=== PATIENT | female | born 1955 | race Caucasian/White ===

== ENCOUNTER 2021-07-21 11:11 | Outpatient (REF) | payer OTHER, SELFPAY ==
[2021-07-21 11:44] LABS: MANUAL DIFF FLAG NO
[2021-07-21 12:34] LABS: Basophils Percent Auto 0.5 % (0-2); Eosinophils Absolute Auto 0.1 X10*3/uL (0.0-0.4); Eosinophils Percent Auto 1.4 % (0-4); Hematocrit 39.9 % (37.0-47.0); Hemoglobin 12.4 g/dl (12.0-16.0); Imm Gran Abs Auto 0.03 X10*3/uL (0.00-0.03); Imm Gran Pct Auto 0.3 % (0.0-0.4); Lymphocytes Absolute Auto 1.9 X10*3/uL (1.2-4.9); Lymphocytes Percent Auto 21.9 % (20-40); Mean Corpuscular HGB Conc 31.1 g/dl (31.0-35.0); Mean Corpuscular Hemoglobin 27.3 pg (27.0-33.0); Mean Corpuscular Volume 87.9 fL (80.0-98.0); Mean Platelet Volume 12.1 fL (9.4-12.3); Monocytes Absolute Auto 0.6 X10*3/uL (0.1-1.2); Monocytes Percent Auto 7.4 % (2-11); Neutrophils Absolute Auto 5.9 x10*3/uL (2.0-8.3); Neutrophils Percent Auto 68.5 % (45-73); Platelet Count 210 X10*3/uL (160-400); Red Blood Count 4.54 X10*6/uL (4.20-5.50); Red Cell Distribution Width 13.7 % (11.0-16.0); White Blood Count 8.6 X10*3/uL (4.8-10.8)
[2021-07-21 13:24] LABS: Alanine Aminotransferase 15 U/L (0-31); Albumin Level 4.3 g/dL (3.5-5.0); Alkaline Phosphatase 69 U/L (39-117); Amylase 41 U/L (28-100); Aspartate Amino Transferase 14 U/L (5-31); Bilirubin Direct 0.2 mg/dL (0.0-0.5); Bilirubin Total 0.4 mg/dL (0.0-1.0); Lipase 29 U/L (8-78)
[2021-07-23 17:47] LABS: Immunoglobulin A 191 mg/dL (70-320)
[2021-07-24 12:16] LABS: Gliadin Deamidated IgA Ab 27.6 U/mL; Gliadin Deamidated IgG Ab 25.3 U/mL; Transglutaminase Ab IgG <1.0 U/mL; Transglutaminase IgA <1.0 U/mL
[2021-07-27 14:12] LABS: Endomysial IgA Antibody Negative (Negative)
== END 2021-07-21 11:12 | disposition home or self-care (01) ==
LOC: HO.LAB 11:11
PROVIDERS: PCP Internal Medicine; Visit Provider Internal Medicine
DX: R10.9 Unspecified abdominal pain (principal); K58.0 Irritable bowel syndrome with diarrhea
CPT/HCPCS: 36415; 80076; 82150; 82784; 83690; 85025; 86231; 86258; 86364

== ENCOUNTER 2022-02-04 09:46 | Outpatient (REF) | payer OTHER, SELFPAY ==
[2022-02-04 10:40] LABS: Hematocrit 39.7 % (37.0-47.0); Hemoglobin 12.5 g/dl (12.0-16.0); Mean Corpuscular HGB Conc 31.5 g/dl (31.0-35.0); Mean Corpuscular Hemoglobin 27.2 pg (27.0-33.0); Mean Corpuscular Volume 86.5 fL (80.0-98.0); Mean Platelet Volume 11.6 fL (9.4-12.3); Platelet Count 246 X10*3/uL (160-400); Red Blood Count 4.59 X10*6/uL (4.20-5.50); Red Cell Distribution Width 14.4 % (11.0-16.0); White Blood Count 8.7 X10*3/uL (4.8-10.8)
[2022-02-04 11:17] LABS: Alanine Aminotransferase 11 U/L (0-31); Albumin Level 4.4 g/dL (3.5-5.0); Alkaline Phosphatase 62 U/L (39-117); Anion Gap 19 (12-20); Aspartate Amino Transferase 14 U/L (5-31); Bilirubin Total 0.5 mg/dL (0.0-1.0); Blood Urea Nitrogen 9 mg/dL (9-16); Calcium 9.5 mg/dL (8.4-10.2); Carbon Dioxide 25 mmol/L (22-29); Chloride 103 mmol/L (96-108); Cholesterol 167 mg/dL; Estimated Glomerular Filt Rate > 60; Glucose Fasting 92 mg/dL (60-99); HDL Cholesterol 52 mg/dL; LDL Cholesterol Calculated 97 mg/dl; Potassium 4.4 mmol/L (3.3-5.1); Sodium 143 mmol/L (135-145); Total Protein 7.3 g/dL (6.5-8.0); Triglycerides 94 mg/dL
[2022-02-04 11:24] LABS: Erythrocyte Sedimentation Rate 20 MM/HR (0-20)
[2022-02-04 11:26] LABS: TSH reflex Free T4 1.03 uIU/mL (0.32-4.0)
[2022-02-07 12:17] LABS: CRP High Sensitivity >10.0 mg/L
[2022-02-07 16:33] LABS: Cyclic Citrullinated Peptide <16 UNITS
[2022-02-09 14:56] LABS: Anti Nuclear Antibody Screen NEGATIVE (NEGATIVE)
== END 2022-02-04 09:47 | disposition home or self-care (01) ==
LOC: HO.LAB 09:46
PROVIDERS: PCP Physician Assistant; Visit Provider Physician Assistant
DX: M79.10 Myalgia, unspecified site (principal); I10 Essential (primary) hypertension
CPT/HCPCS: 36415; 80053; 80061; 84443; 85027; 85652; 86038; 86039; 86141; 86200

== ENCOUNTER 2022-02-11 09:57 | Outpatient (REF) | payer OTHER, SELFPAY ==
--- NOTE | ~2022-02-11 | XR_ITS ---
EXAMINATION: XR HAND, RIGHT CLINICAL INFORMATION: Hand pain COMPARISON: None TECHNIQUE: PA, lateral, and oblique views of the right hand. FINDINGS: No acute fracture or dislocation. Degenerative changes of the hand and wrist involving the first metacarpophalangeal joint with loss of joint space and subchondral sclerosis with mild degenerative changes of the distal interphalangeal joints. Soft tissues are unremarkable. XR/XR hand RT 2V IMPRESSION: Degenerative changes of the hand worst involving the first metacarpophalangeal joint where there is moderate degenerative change.
--- NOTE | ~2022-02-11 | XR_ITS ---
EXAMINATION: XR humerus LT CLINICAL INFORMATION: Reason for Exam M79.641 - Pain in right hand/ BILATERAL ARM PAIN COMPARISON: None. TECHNIQUE: AP and lateral views of the humerus XR/XR humerus LT FINDINGS/IMPRESSION: * No acute fracture or dislocation. * Moderate degenerative changes of the acromioclavicular joint with loss of joint space. Glenohumeral joint space is maintained. * Minimal calcification adjacent to the greater tuberosity may reflect a degree of calcific tendinitis. Dedicated radiographs of the shoulder may be useful for further evaluation.
--- NOTE | ~2022-02-11 | XR_ITS ---
EXAMINATION: XR femur RT 1V, XR femur LT 2V CLINICAL INFORMATION: Reason for Exam M79.641 - Pain in right hand/ BILATERAL THIGH PAIN COMPARISON: None. TECHNIQUE: AP and lateral views of the bilateral femurs XR/XR femur RT 1V FINDINGS/IMPRESSION: * No acute fracture or dislocation. 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 * Mild degenerative changes of the bilateral hips with marginal osteophytes.
--- NOTE | ~2022-02-11 | XR_ITS ---
EXAMINATION: XR femur RT 1V, XR femur LT 2V CLINICAL INFORMATION: Reason for Exam M79.641 - Pain in right hand/ BILATERAL THIGH PAIN COMPARISON: None. TECHNIQUE: AP and lateral views of the bilateral femurs XR/XR femur LT 2V FINDINGS/IMPRESSION: * No acute fracture or dislocation. 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 * Mild degenerative changes of the bilateral hips with marginal osteophytes.
--- NOTE | ~2022-02-11 | XR_ITS ---
EXAMINATION: XR humerus RT CLINICAL INFORMATION: Reason for Exam M79.641 - Pain in right hand/ BILATERAL ARM PAIN COMPARISON: None. TECHNIQUE: AP and lateral views of the humerus XR/XR humerus RT FINDINGS/IMPRESSION: * No acute fracture or dislocation. * Moderate degenerative changes of the acromioclavicular joint with loss of joint space. Glenohumeral joint space is maintained. * Mineralization is noted in the subacromial joint space which may reflect calcific tendinitis.
--- NOTE | ~2022-02-11 | XR_ITS ---
EXAMINATION: XR HAND, LEFT CLINICAL INFORMATION: Hand pain COMPARISON: None TECHNIQUE: PA, lateral, and oblique views of the left hand. FINDINGS: No acute fracture or dislocation. Degenerative changes of the hand, worst involving the first carpometacarpal joint where there is advanced loss of joint space and subchondral sclerosis with mild degenerative changes of the distal interphalangeal joints. Soft tissues are unremarkable. XR/XR hand LT 2V IMPRESSION: Degenerative changes of the hand worst involving the first carpometacarpal joint where there is severe loss of joint space.
== END 2022-02-11 09:58 | disposition home or self-care (01) ==
LOC: HO.XRAY 09:57
PROVIDERS: PCP Physician Assistant; Visit Provider Physician Assistant
DX: M79.601 Pain in right arm (principal); M79.602 Pain in left arm; M79.641 Pain in right hand; M79.642 Pain in left hand; M79.651 Pain in right thigh; M79.652 Pain in left thigh
CPT/HCPCS: 73060; 73120; 73551; 73552

== ENCOUNTER 2022-04-13 11:59 | Outpatient (REF) | payer OTHER, SELFPAY ==
--- NOTE | ~2022-04-13 | MM_ITS ---
EXAMINATION: MM SCREENING DIGITAL BREAST TOMOSYNTHESIS, BILATERAL CLINICAL INFORMATION: Screening. Asymptomatic. The lifetime risk of breast cancer based on the Tyrer-Cuzick Model is 3%. COMPARISON: Outside mammography: 12/25/2020, 12/25/2019, 11/15/2018 ([facility]). TECHNIQUE: Digital breast tomosynthesis is performed in both the craniocaudal and mediolateral oblique views along with computer-aided detection (CAD). Synthesized 2D images are generated from the tomosynthesis. FINDINGS: There are scattered areas of fibroglandular density (ACR BI-RADS breast composition Category b). Parenchymal pattern is similar to prior outside studies. Breast tissue composition borders on predominantly fatty. There is no interval mass or architectural abnormality or developing density. No abnormal calcifications. Again, there are grouped dermal calcifications mid 3:00 right breast. The axilla and skin contours are unremarkable. No significant changes. MM/MM tomosynthesis screening BI IMPRESSION: No mammographic evidence of malignancy. ASSESSMENT: BI-RADS 2: Benign RECOMMENDATION: Routine annual mammography screening. This patient's information was entered into a reminder system with a target due date for their next mammogram.
== END 2022-04-13 12:00 | disposition home or self-care (01) ==
LOC: HO.MAMMO 11:59
PROVIDERS: Visit Provider Physician Assistant
DX: Z12.31 Encounter for screening mammogram for malignant neoplasm of breast (principal)
CPT/HCPCS: 77063; 77067

== ENCOUNTER 2022-06-21 09:37 | Outpatient (REF) | payer OTHER, SELFPAY ==
[2022-06-21 10:20] LABS: Hematocrit 38.5 % (37.0-47.0); Mean Corpuscular HGB Conc 31.2 g/dl (31.0-35.0); Mean Corpuscular Volume 86.5 fL (80.0-98.0); Mean Platelet Volume 11.9 fL (9.4-12.3); Platelet Count 203 X10*3/uL (160-400); Red Blood Count 4.45 X10*6/uL (4.20-5.50); Red Cell Distribution Width 14.1 % (11.0-16.0); White Blood Count 6.5 X10*3/uL (4.8-10.8)
[2022-06-21 11:09] LABS: Alanine Aminotransferase 11 U/L (0-31); Albumin Level 4.3 g/dL (3.5-5.0); Alkaline Phosphatase 55 U/L (39-117); Anion Gap 10 (12-20); Aspartate Amino Transferase 13 U/L (5-31); Bilirubin Total 0.4 mg/dL (0.0-1.0); Blood Urea Nitrogen 11 mg/dL (9-16); Calcium 9.6 mg/dL (8.4-10.2); Carbon Dioxide 27 mmol/L (22-29); Chloride 107 mmol/L (96-108); Cholesterol 149 mg/dL; Estimated Glomerular Filt Rate > 60; Glucose Fasting 96 mg/dL (60-99); HDL Cholesterol 49 mg/dL; LDL Cholesterol Calculated 81 mg/dl; Potassium 4.3 mmol/L (3.3-5.1); Sodium 140 mmol/L (135-145); Total Protein 6.9 g/dL (6.5-8.0); Triglycerides 96 mg/dL
[2022-06-21 11:16] LABS: TSH reflex Free T4 0.97 uIU/mL (0.32-4.0)
[2022-06-21 13:00] LABS: Creatinine Urine 48.15 mg/dL; Microalbumin Urine < 5.0 mg/L
== END 2022-06-21 09:38 | disposition home or self-care (01) ==
LOC: HO.LAB 09:37
PROVIDERS: PCP Physician Assistant; Visit Provider Physician Assistant
DX: I10 Essential (primary) hypertension (principal)
CPT/HCPCS: 36415; 80053; 80061; 82043; 84443; 85027

== ENCOUNTER 2023-01-31 13:50 | Outpatient (AMB) | payer OTHER, SELFPAY ==
[2023-01-31 13:54] VITALS: BP 138/86; PULSE 63; O2SAT 95; BMI 34.8
--- NOTE | 2023-01-31 13:54 | A.OFFPC_ITS ---
Vital Signs 01/31/23 13:54 Height 4 ft 11 in Weight 172 lb 2 oz BMI 34.8 BP 138/86 Blood Pressure Location Lt brachial Position Sitting Pulse 63 Pulse Source Pulse Oximeter Pulse Oximetry (%) 95 Oxygen Delivery Method Room Air Intake Visit Reasons: Ear and throat pain Allergies No Known Allergies [No Known Allergies*] Allergy (Verified 01/31/23 14:09) Medication List - Last Reconciled 01/31/23 by Joshua Brown PA-C acetaminophen ER (Tylenol 8 Hour) 650 mg PO Q12H 30 days albuterol sulfate 90 mcg/actuation 1 puff inhalation Q8H 30 days amlodipine 5 mg PO DAILY budesonide-formoterol 160-4.5 mcg/actuation (Symbicort) 2 puffs PO BID 30 days dicyclomine 10 - 20 mg PO Q6H PRN gabapentin mg PO lisinopril 20 mg PO DAILY omeprazole 40 mg PO QAM ondansetron HCl 8 mg (2 x 4 mg) PO BID 10 days Tobacco use date assessed: 08/23/22 HPI Ear and throat pain HPI Details Patient is 67-year-old female here today for a problem visit. She has been experiencing ear and throat pain over the last 4 days. She has noted some throat pain when swallowing. She denies any sick contacts at home. She denies having any fever, cough, shortness of breath. [facility] Medical History COPD (chronic obstructive pulmonary disease) GERD (gastroesophageal reflux disease) HTN, goal to be determined Obesity Osteoarthritis Osteopenia Vitamin D deficiency Surgical History H/O: hysterectomy Hx of section Hx of cholecystectomy S/P endoscopy Family History Sister Afib Brain bleed Social History Housing: Apartment Alcohol intake: current Alcohol intake frequency: holidays/special occasions only Patient Tobacco Use Status: Former Tobacco user Quit Date: 2013 Tobacco use type: Cigarette e-Cigarette/Vaping Use: Never Used Current occupational status: retired Cognitive needs: No Hearing needs: No Vision needs: Yes Questionnaire PHQ-9 Over the last 2 weeks, how often have you been bothered by any of the following problems? 1. Little interest or pleasure in doing things: not at all 2. Feeling down, depressed, or hopeless: not at all 3. Trouble falling or staying asleep, or sleeping too much: not at all 4. Feeling tired or having little energy: not at all 5. Poor appetite or overeating: not at all 6. Feeling bad about yourself - or that you are a failure or have let yourself or your family down: not at all 7. Trouble concentrating on things, such as reading the newspaper or watching television: not at all 8. Moving or speaking so slowly that other people could have noticed. Or the opposite - being so fidgety or restless that you have been moving around a lot more than usual: not at all 9. Thoughts that you would be better off or of hurting yourself in some way: not at all Total score: 0 Depression Screening Interpretation: Negative 77493 - PHQ-9 Billing: Yes Source: Developed by Drs. Bernabe Nix, Crista Avendaño, Edis Costello and colleagues, with an educational cliff from [employer]. Thrive Questionnaire Date Thrive assessed: 08/23/22 I am a: Patient What is your living situation today?: I have a steady place to live Within the past 12 months, did the food you bought not last and you didn't have the money to get more?: Never true Within the past 12 months, did you worry whether your food would run out before you got money to buy more?: Never true Currently or been in a relationship where the following occur: no concerns reported AUDIT C Alcohol Use Questionnaire (AUDIT-C) 1. How often do you have a drink containing alcohol?: Monthly or less 2. How many drinks containing alcohol do you have on a typical day when you are drinking?: 1 or 2 3. How often do you have six or more drinks on one occasion?: Never Total Score: 1 MARIA TERESA-7 AMB Questionnaire MARIA TERESA-7 Date MARIA TERESA - 7 assessed: 08/23/22 Feeling nervous, anxious, or on edge: 0 = Not at all Not being able to stop or control worryin = Not at all Worrying too much about different things: 0 = Not at all Trouble relaxin = Not at all Being so restless that it is hard to sit still: 0 = Not at all Becoming easily annoyed or irritable: 0 = Not at all Feeling afraid as if something awful might happen: 0 = Not at all Total MARIA TERESA-7 score (0-4 normal; 5-9 mild; 10-14 moderate; 15-21 severe): 0 Source: Developed by Drs. Bernabe Nix, Crista Avendaño, Edis Costello and colleagues, with an educational cliff from [employer]. MARIA TERESA-7 Assessment Billing MARIA TERESA-7 Assessment Tool: MARIA TERESA-7 Assessment 86217 Review of Systems Const Denies headache(s) Eyes Denies loss of vision ENT Denies vertigo, Denies dizziness, Denies headache(s) and Denies sore throat Card Denies chest pain, Denies leg edema and Denies lightheadedness Resp Denies cough, Denies hemoptysis and Denies wheezing GI Denies abdominal pain, Denies melena, Denies constipation, Denies diarrhea and Denies vomiting Denies urinary frequency, Denies dysuria and Denies urinary urgency Musc Denies arthralgias, Denies joint swelling, Denies numbness and Denies tingling Neuro Denies Abnormal speech present, Denies behavioral changes, Denies vertigo, Denies dizziness, Denies headache(s), Denies loss of vision, Denies memory loss, Denies numbness and Denies tingling Psych Denies anxiety, Denies behavioral changes, Denies depression, Denies memory loss and Denies panic attacks Bryon/Lymph Denies easy bleeding and Denies easy bruising Aller/Immun Denies wheezing Physical exam (Primary Care) Vital Signs: Last Vital Signs Pulse 63 01/31/23 13:54 BP 138/86 01/31/23 13:54 Pulse Ox 95 01/31/23 13:54 Oxygen Delivery Method Room Air 01/31/23 13:54 BMI result Body Mass Index 34.8 Tobacco/Smoking Status: Tobacco use Status Tobacco use date assessed 08/23/22 01/31/23 13:58 Patient Tobacco Use Status Former Tobacco user 01/31/23 13:58 Tobacco use type Cigarette 01/31/23 13:58 e-Cigarette/Vaping Use Never Used 01/31/23 13:58 PHQ-9: PHQ-9 Score PHQ-9: Total score 0 01/31/23 14:10 Depression Screening Interpretation: Negative Thrive Assessment: Date of Thrive Assessment Date Thrive assessed 08/23/22 01/31/23 13:58 Currently or been in a relationship where the following occur: no concerns reported Const General: healthy appearing, no acute distress, alert and awake Nutritional Appearance: well nourished Orientation/consciousness: oriented to person, oriented to place and oriented to time HENMT Other: Ears: TM's normal bilaterally General nose exam: Normal nasal mucous membranes and turbinates present Eyes Conjunctivae: conjunctivae normal Sclerae: sclerae normal Pupils: Equal, round and reactive pupils present Neck Neck: Yes no lymphadenopathy and Yes no JVD Thyroid: Thyroid normal Carotids: no bruits Resp Effort & Inspection: normal respiratory effort and not tachypneic Auscultation: no crackles, no rales, no rhonchi and no wheezes Cardio Rate: regular rate Rhythm: regular rhythm Heart sounds: no murmurs and normal S1 and S2 GI Palpation (GI): Soft to palpation, nontender, no hepatomegaly and no splenomegaly Auscultation: normal bowel sounds Skin General skin exam: no rashes or lesions noted and dry skin Neuro General: oriented to person, oriented to place and oriented to time Cranial nerves: Yes Equal, round and reactive pupils present Speech: No Abnormal speech present Gait exam (Neuro): Normal gait present Motor exam (neuro): no tremor noted Extrem Right upper extremity: full ROM Left upper extremity: full ROM Right lower extremity: full ROM; no edema Left lower extremity: full ROM; no edema Psych Mental Status: mental status grossly normal Speech and movement: Normal speech and movement present Affect: normal affect Attitude: cooperative Thought process: Normal thought process present Assessment and Plan Assessment & Plan (1) Acute pharyngitis: Code(s): J02.9 - Acute pharyngitis, unspecified Qualifiers: Pharyngitis/tonsillitis etiology: herpes simplex virus Qualified Code(s): B00.2 - Herpesviral gingivostomatitis and pharyngotonsillitis Plan: Patient's signs symptoms consistent with an acute viral pharyngitis. Seems to have small aphthous ulcers as shown in picture on physical exam.2 Advised on conservative treatment with Tylenol, salt water gargles and use of popsicles. Advised to contact us back if swallowing becomes very difficult and fever develops and will likely consider antibiotic for secondary bacterial infection. Medications: New lidocaine HCl 2% (Lidocaine Viscous) 5 mL mucous membrane BID 7 days PRN 100 mL 0RF pain J02.9 - Acute pharyngitis, unspecified phenol 1.4% (Chloraseptic Throat [place]) 4 sprays mucous membrane Q4H 7 days PRN 177 mL 0RF sore throat B00.2 - Herpesviral gingivostomatitis and pharyngotonsillitis Coding Level of Care Code Est Pt Level 3 (24100) Diagnoses Acute pharyngitis B00.2 Pharyngitis/tonsillitis etiology: herpes simplex virus Additional Codes MARIA TERESA-7 Assessment Billing - MARIA TERESA-7 Assessment Tool: MARIA TERESA-7 Assessment [id number] ([id number])
== END 2023-01-31 15:18 | disposition home or self-care (01) ==
PROVIDERS: PCP Physician Assistant; Visit Provider Physician Assistant
DX: B00.2 Herpesviral gingivostomatitis and pharyngotonsillitis (principal)
CPT/HCPCS: 99213

== ENCOUNTER 2023-04-10 15:32 | Outpatient (AMB) | payer OTHER, SELFPAY ==
--- NOTE | 2023-04-10 15:46 | MHC.PC.OV ---
Vital Signs 04/10/23 15:48 Height 4 ft 11 in Weight 178 lb 4 oz BMI 36.0 BP 134/76 Blood Pressure Location Lt brachial Position Sitting Pulse 95 Pulse Source Pulse Oximeter Pulse Oximetry (%) 96 Oxygen Delivery Method Room Air Intake Visit Reasons: PE Intake Note: Patient is here today for a physical. 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 per policy Accompanied by: Self / Same As Patient Allergies No Known Allergies [No Known Allergies*] Allergy (Verified 04/10/23 16:17) Medication List - Last Reconciled 04/10/23 by Joshua Brown PA-C acetaminophen ER (Tylenol 8 Hour) 650 mg PO Q12H 30 days albuterol sulfate 90 mcg/actuation 1 puff inhalation Q8H 30 days amlodipine 5 mg PO DAILY budesonide-formoterol 160-4.5 mcg/actuation (Symbicort) 2 puffs PO BID 30 days dicyclomine 10 - 20 mg PO Q6H PRN gabapentin 100 mg PO DAILY 90 days lisinopril 20 mg PO DAILY omeprazole 40 mg PO QAM ondansetron HCl 8 mg (2 x 4 mg) PO BID 10 days Tobacco use date assessed: 04/10/23 Fall risk assessment: No Falls in past year Last assessed Fall Risk: 04/10/23 Dental Screening Dental Screen Date: 04/10/23 Did you have a dental visit in the last 12 months?: No Did you have a dental problem in the last 6 months where you did not have access to dental care?: No Was dental information given to patient?: No (dentures) HPI PE HPI Details Patient is a 67 y/o F here today for PE .?? Patient has a past medical history significant for hypertension, IBS, COPD and former smoker. . Polyarthritis: Patient now followed by arthritic treatment center was started on gabapentin 100 mg b.i.d. with decent relief of her arthritic pain. She has lost follow-up with her rheumatology group and would like to have PCP manage her gabapentin medication. . Hypertension:Blood pressure acceptable today in office.? She otherwise denies any chest discomfort, headaches, palpitations or vision issues. . GERD: Followed by GI ( Dr Pedro) who prescribes her GI medication, also has IBS to which she uses dicyclomine for.? will need upcoming colonoscopy 2022 .. Mammogram: Has upcoming appointment for mammogram .. VAccine: UTD COVID vaccine , NEEDs Td . Laboratory Tests 07/21/21 02/04/22 06/21/22 11:42 09:56 09:53 RBC 4.54 4.59 4.45 Hgb 12.4 12.5 Creatinine 0.77 0.79 C-React Prot High Sens >10.0 H Cholesterol 167 TSH 1.03 PFSH Medical History (Updated 04/13/23 @ 08:17 by Joshua Brown PA-C) Hand arthritis Vitamin D deficiency Osteopenia Osteoarthritis Obesity HTN, goal to be determined GERD (gastroesophageal reflux disease) COPD (chronic obstructive pulmonary disease) Surgical History H/O: hysterectomy S/P endoscopy Hx of cholecystectomy Hx of section Family History Sister Afib Brain bleed Social History (Updated 04/10/23 @ 16:21 by Joshua Brown PA-C) Housing: Apartment Alcohol intake: current Alcohol intake frequency: holidays/special occasions only Patient Tobacco Use Status: Former Tobacco user Quit Date: 2013 Tobacco use type: Cigarette e-Cigarette/Vaping Use: Never Used Second Hand Smoke Exposure: No Current occupational status: retired Cognitive needs: No Hearing needs: No Vision needs: Yes Questionnaire Thrive Questionnaire Date Thrive assessed: 08/23/22 MARIA TERESA-7 AMB Questionnaire MARIA TERESA-7 Date MARIA TERESA - 7 assessed: 08/23/22 Source: Developed by Drs. Bernabe Nix, Crista Avendaño, Edis Costello and colleagues, with an educational cliff from [employer]. Review of Systems Const Denies body aches, Denies chills, Denies excessive sweating, Denies fatigue, Denies fever(s) and Denies headache(s) Eyes Denies blurry vision ENT Denies dysphagia, Denies vertigo, Denies dizziness, Denies headache(s), Denies hearing loss and Denies tinnitus Card Denies chest pain, Denies chest pain with activity, Denies syncope, Denies irregular heart rhythm and Denies dyspnea Resp Denies chest congestion, Denies cough, Denies hemoptysis, Denies dyspnea and Denies wheezing GI Denies abdominal pain, Denies melena, Denies hematochezia, Denies coffee ground emesis, Denies dysphagia, Denies diarrhea, Denies nausea and Denies vomiting Denies urinary frequency, Denies dysuria, Denies urinary hesitancy and Denies urinary urgency Musc Denies arthralgias, Denies limited range of motion, Denies muscle cramps and Denies muscle weakness Skin/Breast Denies rash and Denies skin ulcer Neuro Denies Abnormal speech present, Denies confusion, Denies vertigo, Denies dizziness, Denies syncope, Denies headache(s), Denies memory loss and Denies seizure-like activity Psych Denies anxiety, Denies confusion, Denies depression, Denies memory loss, Denies panic attacks and Denies paranoia Endo Denies excessive sweating, Denies fatigue, Denies flushing, Denies polydipsia and Denies polyuria Aller/Immun Denies wheezing Physical exam (Primary Care) Vital Signs: Last Vital Signs Pulse 95 04/10/23 15:48 BP 134/76 04/10/23 15:48 Pulse Ox 96 04/10/23 15:48 Oxygen Delivery Method Room Air 04/10/23 15:48 BMI result Body Mass Index 36.0 BMI Assessment/Plan discussion: High Tobacco/Smoking Status: Tobacco use Status Tobacco use date assessed 04/10/23 04/10/23 15:53 Patient Tobacco Use Status Former Tobacco user 04/10/23 16:21 Tobacco use type Cigarette 04/10/23 16:21 e-Cigarette/Vaping Use Never Used 04/10/23 16:21 Thrive Assessment: Date of Thrive Assessment Date Thrive assessed 08/23/22 04/10/23 15:53 Const Other: Obese General: cooperative, comfortable, no acute distress, alert and awake; No confusion Orientation/consciousness: oriented to person, oriented to place, patient oriented x3 and No confusion HENMT Head: Yes normocephalic Ears: external ears normal and TM's normal bilaterally Face and sinus: No sinus tenderness Mouth: Normal oral and palatal mucosa present and tongue normal Teeth and gingiva: dentition normal and gingiva normal Throat: Yes posterior oropharynx normal, Yes tonsils normal and Yes uvula midline Eyes Conjunctivae: conjunctivae normal Sclerae: sclerae normal Pupils: Equal, round and reactive pupils present EOM: EOMs intact bilaterally Direct Ophthalmoscopy: No no photophobia Neck Neck: Yes no lymphadenopathy, No tender and Yes no JVD Thyroid: Thyroid normal Carotids: no bruits Chest Chest palpation & inspection: no tenderness Resp Effort & Inspection: normal respiratory effort, no audible wheezes, not labored and no stridor Auscultation: no crackles, no rales, no rhonchi and no wheezes Cardio Jugular venous distension: no JVD Rate: regular rate, not bradycardic and not tachycardic Rhythm: regular rhythm Bruits: no carotid bruits Peripheral pulses: Peripheral pulses 2+ throughout GI Inspection: Yes normal to inspection, No abdominal wall ecchymosis and No visible herniation Palpation (GI): Soft to palpation, nontender, no guarding, not rigid and No hepatosplenomegaly present Auscultation: normoactive bowel sounds General: Yes no CVA tenderness Back/Spine/Pelvis Back: no CVA tenderness and No back tenderness Cervical Spine: cervical ROM normal Thoracic/Lumbar Spine: thoracic and lumbar spine normal to inspection, straight leg raise negative bilaterally, No thoraco-lumbar ROM limited and No lumbar spinal tenderness Skin Lesions: no lesions Rashes: no rashes Wounds: no wounds Neuro General: oriented to person, oriented to place, patient oriented x3, CN's II-XI intact bilaterally and No confusion Cranial nerves: Yes Equal, round and reactive pupils present and Yes Normal accommodation reflex present Cognition (Neuro): normal cognition Speech: No Abnormal speech present Gait exam (Neuro): Normal gait present Motor exam (neuro): 5/5 motor strength present throughout Extrem Right upper extremity: full ROM; no cyanosis Left upper extremity: full ROM; no cyanosis Right lower extremity: no edema Left lower extremity: no edema Psych Appearance: grossly normal Mental Status: mental status grossly normal Affect: normal affect Attitude: cooperative Thought process: Normal thought process present Immunizations tetanus-diphtheria toxoids-Td 2 Lf unit-2 Lf unit/0.5 mL IM suspension Performing Provider: Joshua Brown PA-C Performing Location: [facility] Administered by: KEV Motta on 04/10/23 16:44 Dose Route Admin Location Dispensed Lot Number Expiration Date NDC Biomedical Equipment Technician 0.5 mL IM Left Deltoid 0.5 mL [id number] 10/23/23 [id number] [employer] VIS Given Date VIS Provided VIS Publication Date 04/10/23 Single Vaccine 21 Eligibility Eligibility Date Funding Source Not [facility] Eligible 04/10/23 [facility] Assessment and Plan Assessment & Plan (1) Annual physical exam: Code(s): Z00.00 - Encounter for general adult medical examination without abnormal findings (2) GERD (gastroesophageal reflux disease): Code(s): K21.9 - Gastro-esophageal reflux disease without esophagitis Qualifiers: Esophagitis presence: without esophagitis Qualified Code(s): K21.9 - Gastro-esophageal reflux disease without esophagitis Plan: Patient continues with PPI therapy with good effect on reducing her GERD symptoms. Again advised to stay way from gastric irritants. Has stop the use of NSAIDs GERD symptoms have been a bit better. (3) COPD (chronic obstructive pulmonary disease): Code(s): J44.9 - Chronic obstructive pulmonary disease, unspecified Qualifiers: COPD type: chronic bronchitis Chronic bronchitis type: simple Qualified Code(s): J41.0 - Simple chronic bronchitis Plan: Patient continues on maintenance inhaler with good effect. She denies any recent exacerbations in her COPD. Quit smoking many many years ago. (4) HTN, goal to be determined: Code(s): I10 - Essential (primary) hypertension Plan: Patient's blood pressure acceptable today in office. Will continue her current dose of lisinopril and amlodipine with goal blood pressure to remain below 140/90 . (5) Polyarthritis: Code(s): M13.0 - Polyarthritis, unspecified Plan: Patient was followed by arthritic treatment center though has lost her follow-up. Has been placed on gabapentin 100 mg b.i.d. which has been offering excellent relief of her arthritic pains. (6) Obese: Code(s): E66.9 - Obesity, unspecified Qualifiers: Obesity type: due to excess calories Obesity classification: adult class 2 (BMI 35 - 39.9) Serious obesity comorbidity presence: without serious comorbidity Body mass index: BMI 35.0-35.9 Qualified Code(s): E66.09 - Other obesity due to excess calories; Z68.35 - Body mass index [BMI] 35.0-35.9, adult Plan: Patient does understand her BMI is over 30 will continue working on being more physically active and adapting to better eating habits to reduce her weight Orders: Orders Td State Immunization 04/10/23 M13.0 - Polyarthritis, unspecified, Z23 - Encounter for immunization Medications: New gabapentin 100 mg PO BID 90 days 180 caps 1RF M13.0 - Polyarthritis, unspecified Discontinued gabapentin Discontinued Reason: Doctor's Order 100 mg PO DAILY 90 days 90 caps 1RF M13.0 - Polyarthritis, unspecified Coding Level of Care Code Est Pt Prev Care >65y(84383) Diagnoses Annual physical exam Z00.00 Gastroesophageal reflux disease without esophagitis K21.9 Esophagitis presence: without esophagitis Simple chronic bronchitis J41.0 COPD type: chronic bronchitis Chronic bronchitis type: simple HTN, goal to be determined I10 Polyarthritis M13.0 Class 2 obesity due to excess calories without serious comorbidity with body mass index (BMI) of 35.0 to 35.9 in adult E66.09; Z68.35 Obesity type: due to excess calories Obesity classification: adult class 2 (BMI 35 - 39.9) Serious obesity comorbidity presence: without serious comorbidity Body mass index: BMI 35.0-35.9
[2023-04-10 15:48] VITALS: BP 134/76; PULSE 95; O2SAT 96; BMI 36.0
== END 2023-04-10 16:47 | disposition home or self-care (01) ==
PROVIDERS: Visit Provider Physician Assistant
DX: Z23 Encounter for immunization (principal); M13.0 Polyarthritis, unspecified
CPT/HCPCS: 90471; 90714; 99397

== ENCOUNTER 2023-04-18 11:28 | Outpatient (REF) | payer OTHER, SELFPAY ==
[2023-04-18 12:27] LABS: Hematocrit 39.3 % (37.0-47.0); Hemoglobin 12.4 g/dl (12.0-16.0); Mean Corpuscular HGB Conc 31.6 g/dl (31.0-35.0); Mean Corpuscular Hemoglobin 26.7 pg (27.0-33.0); Mean Corpuscular Volume 84.7 fL (80.0-98.0); Platelet Count 202 X10*3/uL (160-400); Red Blood Count 4.64 X10*6/uL (4.20-5.50); Red Cell Distribution Width 14.8 % (11.0-16.0); White Blood Count 8.4 X10*3/uL (4.8-10.8)
[2023-04-18 12:57] LABS: Alanine Aminotransferase 13 U/L (0-31); Albumin Level 4.5 g/dL (3.5-5.0); Alkaline Phosphatase 68 U/L (39-117); Anion Gap 13 (12-20); Aspartate Amino Transferase 17 U/L (5-31); Bilirubin Total 0.3 mg/dL (0.0-1.0); Blood Urea Nitrogen 11 mg/dL (9-16); Calcium 9.8 mg/dL (8.4-10.2); Carbon Dioxide 23 mmol/L (22-29); Chloride 107 mmol/L (96-108); Cholesterol 164 mg/dL (<200); Estimated Glomerular Filt Rate > 60; Glucose Fasting 95 mg/dL (60-99); HDL Cholesterol 47 mg/dL (>40); LDL Cholesterol Calculated 94 mg/dL (<100); Potassium 4.2 mmol/L (3.3-5.1); Sodium 139 mmol/L (135-145); Total Protein 7.7 g/dL (6.5-8.0); Triglycerides 119 mg/dL (<150)
[2023-04-18 13:22] LABS: TSH reflex Free T4 0.92 uIU/mL (0.32-4.0)
== END 2023-04-18 11:29 | disposition home or self-care (01) ==
LOC: HO.LAB 11:28
PROVIDERS: PCP Physician Assistant; Visit Provider Physician Assistant
DX: Z12.31 Encounter for screening mammogram for malignant neoplasm of breast (principal); I10 Essential (primary) hypertension
CPT/HCPCS: 36415; 77063; 77067; 80053; 80061; 84443; 85027

== ENCOUNTER 2023-04-18 11:52 | Outpatient (REF) | payer OTHER, SELFPAY | END 2023-04-18 11:53 | disposition home or self-care (01) | LOC: HO.MAMMO 11:52 | PROVIDERS: PCP Physician Assistant; Visit Provider Physician Assistant | DX: Z13.89 Encounter for screening for other disorder (principal) ==

== ENCOUNTER → 2023-04-18 12:15 | Outpatient (BNV) | payer OTHER, SELFPAY | PROVIDERS: PCP Physician Assistant; Visit Provider Radiology Diagnostic Radiology | DX: Z12.31 Encounter for screening mammogram for malignant neoplasm of breast (principal) | CPT/HCPCS: 77063; 77067 ==

== ENCOUNTER 2023-05-26 08:14 | Day surgery (SDC) | payer OTHER, SELFPAY ==
--- NOTE | 2023-05-24 13:58 | P.CONAN_ITS ---
Documented by User: Carey Le NP 05/24/23 13:58 HPI - Anesthesia Eval Consult details Narrative: 68yo F for Upper Endoscopy and Colonoscopy PMFSH Active Problems Active Problems: All Active Problems (Updated 04/13/23 @ 08:17 by Joshua Brown PA-C) Acute pharyngitis (Acute) Irritable bowel syndrome with diarrhea (Acute) Annual physical exam (Acute) Breast cancer screening (Acute) Polyarthritis (Acute) Bilateral arm pain (Acute) Obese (Acute) HTN, goal to be determined (Acute) COPD (chronic obstructive pulmonary disease) (Acute) GERD (gastroesophageal reflux disease) (Acute) Past Medical History Medical History (Updated 04/13/23 @ 08:17 by Joshua Brown PA-C) Hand arthritis Vitamin D deficiency Osteopenia Osteoarthritis Obesity HTN, goal to be determined GERD (gastroesophageal reflux disease) COPD (chronic obstructive pulmonary disease) Family History Family History Sister Afib Brain bleed Surgical History Surgical History H/O: hysterectomy S/P endoscopy Hx of cholecystectomy Hx of section Social History Social History (Updated 04/10/23 @ 16:21 by Joshua Brown PA-C) Housing: Apartment Alcohol intake: current Alcohol intake frequency: holidays/special occasions only Patient Tobacco Use Status: Former Tobacco user Quit Date: 2013 Tobacco use type: Cigarette e-Cigarette/Vaping Use: Never Used Second Hand Smoke Exposure: No Use of substances other than those prescribed or required for medical reasons: No Are you DNR?: No Advance Directives: No Advance Directives Information Provided: Yes Current occupational status: retired Cognitive needs: No Hearing needs: No Vision needs: Yes Meds Allergies Allergy/AdvReac Type Severity Reaction Status Date / Time No Known Allergies Allergy Verified 04/10/23 16:17 [No Known Allergies*] Home Medications Medication Instructions Recorded Confirmed Last Taken Type dicyclomine 10 mg capsule 10 - 20 mg PO Q6H PRN cramps 02/01/22 05/25/23 Unknown History albuterol sulfate 90 mcg/actuation 2 puff inhalation Q6-8H PRN 05/25/23 05/25/23 Unknown History aerosol inhaler Shortness Of Breath Or Wheezing gabapentin 100 mg capsule 100 mg PO DAILY 05/25/23 05/25/23 Unknown History ondansetron HCl 4 mg tablet 4 mg PO Q6-8H PRN Nausea 05/25/23 05/25/23 Unknown History Assessment and Plan Assessment Anesthesia Assessment: Chart Reviewed Documented by User: Ayan Seaman MD 05/26/23 09:07 [facility] Past Medical History Medical History (Updated 04/13/23 @ 08:17 by Joshua Brown PA-C) Hand arthritis Vitamin D deficiency Osteopenia Osteoarthritis Obesity HTN, goal to be determined GERD (gastroesophageal reflux disease) COPD (chronic obstructive pulmonary disease) Family History Family History Sister Afib Brain bleed Family history of problems with anesthesia: No Surgical History Surgical History H/O: hysterectomy S/P endoscopy Hx of cholecystectomy Hx of section History of Problems with Anesthesia: No Social History Social History (Updated 04/10/23 @ 16:21 by Joshua Brown PA-C) Housing: Apartment Alcohol intake: current Alcohol intake frequency: holidays/special occasions only Patient Tobacco Use Status: Former Tobacco user Quit Date: 2013 Tobacco use type: Cigarette e-Cigarette/Vaping Use: Never Used Second Hand Smoke Exposure: No Use of substances other than those prescribed or required for medical reasons: No Are you DNR?: No Advance Directives: No Advance Directives Information Provided: Yes Current occupational status: retired Cognitive needs: No Hearing needs: No Vision needs: Yes Meds Allergies Allergy/AdvReac Type Severity Reaction Status Date / Time No Known Allergies Allergy Verified 04/10/23 16:17 [No Known Allergies*] Home Medications Medication Instructions Recorded Confirmed Last Taken Type dicyclomine 10 mg capsule 10 - 20 mg PO Q6H PRN cramps 02/01/22 05/25/23 Unknown History albuterol sulfate 90 mcg/actuation 2 puff inhalation Q6-8H PRN 05/25/23 05/25/23 Unknown History aerosol inhaler Shortness Of Breath Or Wheezing gabapentin 100 mg capsule 100 mg PO DAILY 05/25/23 05/25/23 Unknown History ondansetron HCl 4 mg tablet 4 mg PO Q6-8H PRN Nausea 05/25/23 05/25/23 Unknown History Exam Airway Mallampati Class: II TM Dist: >3cm Neck ROM: Limited Heart: rrr Lungs: cta Assessment and Plan Assessment Anesthesia Assessment: Anesthesia Plan Discussed Final Anesthetic Review Family History of Problems with Anesthesia: No History of Problems with Anesthesia: No NPO: Yes ASA Class: II and III Final Preanesthetic Review: No Changes in Pt Med Stat, Meds/Allgs Chart Reviewed, Consent Obtained/Reviewed and Anes Risks/Benef Reviewed Patient Risk: Low Procedure Risk: Intermediate Assessment/Block/Sedation in SS: Assess/Block/Sedation-SS Anesthetic Plan Anesthetic Plan: GA and Agree w/ Assess. and Plan Disposition: Standard PACU
[2023-05-25 07:07] VITALS: BMI 35.9
[2023-05-26 08:37] VITALS: BMI 33.8
[2023-05-26 08:44] VITALS: BP 125/73; PULSE 117; RESP 16; TEMP 36.4; O2SAT 95
[2023-05-26] MEDS: Lactated Ringers 1,000 ML 100 ML IVCONT (08:57)
[2023-05-26 09:14] VITALS: PULSE 96
[2023-05-26 10:50] VITALS: BP 125/77; PULSE 79; RESP 16; TEMP 36.2; O2SAT 97
--- NOTE | 2023-05-26 10:52 | PM.OP ---
Brief Operative Note Date of Service: 05/26/23 Pre-op diagnosis: Screening, abnormal celiac disease labs Post-op diagnosis: other (Hiatal hernia, Gastritis, R/O celiac disease, Colon polyp) Procedure: EGD with biopsies, Colonoscopy to the cecum and TI with cold snare polypectomy x 1 Surgeon: Bernabe Pedro MD Anesthesia: MAC Was an Ornamental Iron Erector used for this Procedure?: No Estimated blood loss (mL): 2.0 Pathology: other (A. Descending duodenum B. Gastric antrum C. Polyp at 50cm) Condition: stable Disposition: PACU
[2023-05-26 11:05] VITALS: BP 104/72; PULSE 80; RESP 20; TEMP 36.6; O2SAT 96
--- NOTE | 2023-05-26 12:05 | OP_ITS ---
DATE OF SERVICE: 05/26/2023 SURGEON: Bernabe Pedro MD INDICATIONS: The patient presents for evaluation of colorectal cancer screening, irritable bowel syndrome, and abnormal celiac disease laboratories. Full consent has been obtained from her for both procedures, including risks of bleeding and perforation. PREOPERATIVE DIAGNOSIS: POSTOPERATIVE DIAGNOSIS: PROCEDURE PERFORMED: Esophagogastroduodenoscopy with biopsies, and colonoscopy to cecum and terminal ileum with cold snare polypectomy x1. ESTIMATED BLOOD LOSS: COMPLICATIONS: ANESTHESIA: Monitored anesthesia care. The Olympus video gastroscope was passed in the posterior oropharynx and upper esophagus under direct vision. The scope was passed slowly into the distal esophagus. The gastroesophageal junction appeared at 35 cm. There was some very minimal irregularity but no esophagitis nor Mueller esophagus. The scope entered the stomach. There was a small hiatal hernia. The scope was advanced to the pylorus and the duodenum was cannulated to the descending portion. The duodenum including the bulb appeared normal without mass or ulceration. Biopsies were obtained from the 2nd and 3rd portions of the duodenum. The scope was withdrawn back in the stomach. The gastric antrum and body had some areas of edema and erythema consistent with some mild gastritis but no erosions or ulcerations there was good peristalsis. Biopsies were obtained from the antrum. The scope was retroflexed visualizing the proximal stomach carefully, which appeared normal, without any sign of mass or ulceration, other than some hyperplastic appearing gastric polyps. The scope was straightened and withdrawn back to the esophagus. The esophageal mucosa appeared normal. The scope was withdrawn from the patient. She was turned around for the colonoscopy. The digital rectal exam revealed no abnormalities. The Olympus video pediatric colonoscope was entered into the rectum and advanced easily to the cecum. Once in the cecum, I did identify normal-appearing cecal pouch with appendiceal orifice and a normal-appearing ileocecal valve. The terminal ileum was cannulated and appeared normal. Scope was withdrawn back in the colon. The entire cecum and ileocecal valve appeared normal. The scope was slowly withdrawn assessing all mucosal surfaces carefully. Preparation was excellent. At 50 cm was an approximately 6 mm flat, but raised polyp, which was removed by cold snare polypectomy, recovered by suction. The polypectomy site appeared clean, without any sign of residual polyp nor significant bleeding. I do not visualize any other polyps, colitis, nor angiodysplasia. There was a mild amount of sigmoid diverticulosis. In the rectum, scope was retroflexed visualizing internal hemorrhoids, but no other pathology. The rectal mucosa appeared normal. The scope was straightened and withdrawn from the patient. She tolerated both procedures well and was returned to the recovery area in stable condition. ASSISTANTS: SPECIMENS: PREOPERATIVE DIAGNOSES: Colorectal cancer screening, irritable bowel syndrome, and abnormal celiac disease laboratories. POSTOPERATIVE DIAGNOSES: Colorectal cancer screening, irritable bowel syndrome, and abnormal celiac disease laboratories, hiatal hernia, gastritis, rule out celiac disease, colon polyp, diverticulosis, and internal hemorrhoids. IMPRESSION: 1. Colon polyp. 2. Diverticulosis. 3. Internal hemorrhoids. 4. Rule out celiac disease. 5. Gastritis. 6. Hiatal hernia. PLAN: The results of the biopsies will be checked. If the colon polyp is a tubular adenoma, I would recommend a followup coloscopy in 5 years. If it is only hyperplastic, then we may hold off on any further screening colonoscopies since she would be in her late 70s at that point. She was advised not to use any aspirin or NSAIDs for 1 week. She will continue her current regimen of omeprazole, dicyclomine, and Zofran for her GI symptoms. MD STAN Fox/BERENICE / [phone]
== END 2023-05-26 11:11 | disposition home or self-care (01) ==
PROVIDERS: PCP Physician Assistant; Visit Provider Internal Medicine
PROC: (CPT 43239; principal; 2023-05-26 09:30)
DX: K29.70 Gastritis, unspecified, without bleeding (principal); K44.9 Diaphragmatic hernia without obstruction or gangrene; K21.9 Gastro-esophageal reflux disease without esophagitis; Z12.11 Encounter for screening for malignant neoplasm of colon; K31.7 Polyp of stomach and duodenum; D12.5 Benign neoplasm of sigmoid colon; K57.30 Diverticulosis of large intestine without perforation or abscess without bleeding; K64.8 Other hemorrhoids; R19.8 Other specified symptoms and signs involving the digestive system and abdomen; I10 Essential (primary) hypertension; K58.9 Irritable bowel syndrome, unspecified; J44.9 Chronic obstructive pulmonary disease, unspecified; E66.9 Obesity, unspecified; Z68.32 Body mass index [BMI] 32.0-32.9, adult; Z87.891 Personal history of nicotine dependence; Z79.899 Other long term (current) drug therapy
CPT/HCPCS: 43239; 45385; 88305; 88342; J2704

== ENCOUNTER 2023-07-04 10:23 | Emergency (ER) | payer OTHER, SELFPAY ==
--- NOTE | ~2023-07-04 | CT_ITS ---
EXAMINATION: CT ABDOMEN AND PELVIS WITH CONTRAST CLINICAL INFORMATION: Right lower quadrant tenderness COMPARISON: Portions of a previous CT 01/23/20 TECHNIQUE: Multidetector volumetric images were obtained from the superior aspect of the liver through the pubic symphysis following administration 85 mL of Omnipaque 350 intravenous contrast. Sagittal and coronal reformatted images were obtained on the technologist's workstation. Oral contrast: No This CT examination was performed using dose optimization techniques as appropriate, variously including the following: *Automated exposure control *Adjustment of mA and/or kV according to patient size (this includes techniques or standardized protocols for targeted exams where dose is matched to indication/reason for exam; i.e. extremities or head) *Use of iterative reconstruction technique DLP: 558 mGy-cm FINDINGS: LUNG BASES: No suspicious abnormality in the visualized lower chest LIVER, GALLBLADDER, AND BILIARY TREE: The liver contour is smooth. The right lobe of the liver measures 17.2 cm which is within one standard deviation above the mean expected. No suspicious focal liver lesion the gallbladder is not visualized. The common duct is within normal limits after cholecystectomy. PANCREAS: There is a less than 0.8 cm low attenuating area in the pancreatic head. This appears to have fat attenuation and does not require any specific imaging follow-up. SPLEEN: No suspicious abnormality. There are calcified granulomata. The spleen measures 10.5 cm which is close to the mean expected ADRENAL GLANDS: No suspicious abnormality KIDNEYS AND URETERS: There is no dilation of the urinary collecting system on either side. The renal contours are smooth. There is a tiny probable cyst in the lower right kidney which does not require any further evaluation. There is no suspicious renal mass. The nephrograms are symmetric. BLADDER: No suspicious abnormality GASTROINTESTINAL TRACT: There is some apparent wall thickening in the region of the hepatic flexure and ascending colon. No surrounding stranding. The lumen is likely narrowed. No definite involvement of the distal small bowel or stomach. No disproportionate small bowel dilation. No evidence of acute appendicitis. ABDOMINAL WALL: Evidence of previous midline surgery. No significant abdominal wall hernia LYMPH NODES: There are a few nonspecific upper abdominal mesenteric lymph nodes. No enlarged retroperitoneal lymph nodes VASCULAR: There is no abdominal aortic aneurysm. The portal vein enhances. There is a normal variant circumaortic left renal vein PELVIC VISCERA: The uterus is surgically absent. There is no suspicious adnexal mass or collection. OSSEOUS STRUCTURES: No suspicious focal lesion CT/CT abdomen pelvis w IV con IMPRESSION: Apparent wall thickening and luminal narrowing of the ascending colon. Although this could be physiologic colitis could give this appearance. No evidence of abscess, bowel obstruction or pneumoperitoneum. No free intraperitoneal fluid. Fleischner guidelines were followed.
[2023-07-04 10:28] VITALS: BP 146/73; PULSE 94; RESP 19; TEMP 36.5; O2SAT 99; BMI 34.2
--- NOTE | 2023-07-04 10:36 | ECG_ITS ---
Test Reason : FATIGUE Blood Pressure : / mmHG Vent. Rate : 089 BPM Atrial Rate : 089 BPM P-R Int : 118 ms QRS Dur : 082 ms QT Int : 348 ms P-R-T Axes : 066 012 049 degrees QTc Int : 423 ms Normal sinus rhythm Nonspecific ST and T wave abnormality Abnormal ECG No previous ECGs available Referred By: Generic ED Physician Electronically Signed By:MICHAEL FELIX
[2023-07-04 11:07] LABS: MANUAL DIFF FLAG NO
[2023-07-04 11:11] LABS: Basophils Absolute Auto 0.1 X10*3/uL (0.0-0.2); Basophils Percent Auto 0.5 % (0-2); Eosinophils Absolute Auto 0.1 X10*3/uL (0.0-0.4); Eosinophils Percent Auto 0.6 % (0-4); Hematocrit 42.6 % (37.0-47.0); Hemoglobin 13.5 g/dl (12.0-16.0); Imm Gran Abs Auto 0.03 X10*3/uL (0.00-0.03); Imm Gran Pct Auto 0.3 % (0.0-0.4); Lymphocytes Absolute Auto 1.4 X10*3/uL (1.2-4.9); Lymphocytes Percent Auto 14.2 % (20-40); Mean Corpuscular HGB Conc 31.7 g/dl (31.0-35.0); Mean Corpuscular Hemoglobin 26.8 pg (27.0-33.0); Mean Corpuscular Volume 84.5 fL (80.0-98.0); Mean Platelet Volume 11.5 fL (9.4-12.3); Monocytes Absolute Auto 0.5 X10*3/uL (0.1-1.2); Monocytes Percent Auto 5.2 % (2-11); Neutrophils Absolute Auto 7.8 x10*3/uL (2.0-8.3); Neutrophils Percent Auto 79.2 % (45-73); Platelet Count 237 X10*3/uL (160-400); Red Blood Count 5.04 X10*6/uL (4.20-5.50); Red Cell Distribution Width 14.1 % (11.0-16.0); White Blood Count 9.8 X10*3/uL (4.8-10.8)
[2023-07-04 11:12] LABS: Appearance Urine Cloudy; Color Urine Dark Yellow; Glucose Urine UA Negative (Negative); Leukocyte Esterase Urine Trace (Negative); Nitrite Urine Negative (Negative); PH 5.5 (5.0-9.0); Specific Gravity - Urine 1.025 (1.005-1.025); UMIC TRIGGER UACC YES; Urine Blood Negative (Negative); Urine Ketones Trace mg/dL (Negative); Urine Protein Trace mg/dL (Neg-Trace)
[2023-07-04 11:25] LABS: Bacteria Urine 3+ (None Seen); RBC Urine 0-2 /HPF (0-2); WBC Urine 0-5 /HPF (0-5)
[2023-07-04 11:28] LABS: Alanine Aminotransferase 15 U/L (0-31); Albumin Level 4.4 g/dL (3.5-5.0); Alkaline Phosphatase 75 U/L (39-117); Anion Gap 14 (12-20); Aspartate Amino Transferase 15 U/L (5-31); Bilirubin Direct 0.2 mg/dL (0.0-0.5); Bilirubin Total 0.4 mg/dL (0.0-1.0); Blood Urea Nitrogen 10 mg/dL (9-16); Calcium 9.8 mg/dL (8.4-10.2); Carbon Dioxide 26 mmol/L (22-29); Chloride 105 mmol/L (96-108); Creatinine Clr Calc Pharmacy 52.8; Estimated Glomerular Filt Rate 58; Glucose Random 114 mg/dL (60-115); Lipase 26 U/L (8-78); Magnesium 1.9 mg/dL (1.6-2.6); Potassium 4.1 mmol/L (3.3-5.1); Sodium 141 mmol/L (135-145); Total Protein 7.7 g/dL (6.5-8.0)
[2023-07-04 11:37] LABS: Troponin-I High Sensitivity < 2.7 ng/L (<3.5-17.0)
--- NOTE | 2023-07-04 12:58 | ED_ITS ---
HPI - General Adult General Chief complaint: General Medical Stated complaint: Abd pain, fatigue Time Seen by Provider: 07/04/23 16:10 Source: patient Mode of arrival: ambulatory Limitations: no limitations History of Present Illness HPI narrative: She has a 68-year-old female who presents emergency department for evaluation of generalized fatigue, nausea diarrhea. She reports that she started taking sertraline 5 days ago. She took the medication for 3 days but ultimately stopped due to the symptoms she was experiencing. She stopped the medication 2 days ago. She had Zofran at home which she states did not help her nausea. She does report a history of gastritis and IBS. She denies any known sick contacts. Denies fevers, chills, dizziness, lightheadedness, chest pain, shortness of breath, difficulty breathing, URI symptoms, numbness or tingling of the extremities, genitourinary symptoms. Related Data Home Medications Medication Instructions Recorded Confirmed dicyclomine 10 mg capsule 10 - 20 mg PO Q6H PRN cramps 02/01/22 05/25/23 albuterol sulfate 90 mcg/actuation 2 puff inhalation Q6-8H PRN 05/25/23 05/25/23 aerosol inhaler Shortness Of Breath Or Wheezing gabapentin 100 mg capsule 100 mg PO DAILY 05/25/23 05/25/23 ondansetron HCl 4 mg tablet 4 mg PO Q6-8H PRN Nausea 05/25/23 05/25/23 Previous Rx's Medication Instructions Recorded amlodipine 5 mg tablet 5 mg PO DAILY #90 tabs 10/19/22 omeprazole 40 mg capsule,delayed 40 mg PO QAM #90 caps 10/19/22 release acetaminophen 650 mg 650 mg PO Q12H 30 days #60 tabs 04/13/23 tablet,extended release (Tylenol 8 Hour) lisinopril 20 mg tablet 20 mg PO DAILY #90 tabs 04/14/23 budesonide-formoterol HFA 160 2 puff PO BID 30 days #10.2 grams 06/22/23 mcg-4.5 mcg/actuation aerosol inhaler (Symbicort) sertraline 25 mg tablet 25 mg PO DAILY 30 days #30 tabs 06/29/23 Allergies Allergy/AdvReac Type Severity Reaction Status Date / Time No Known Allergies Allergy Verified 04/10/23 16:17 [No Known Allergies*] Review of Systems 2 Review of Systems: Yes all other systems are reviewed and are negative PMFSH Past Medical History Attestation statement: The following information was validated with the patient. Source: old records reviewed Onset Date is defined in the Problem List Problems that require an onset date and time if occurred within 24 hrs of arrival to the ED Aortic Dissection and Rupture; Neurologic impairment; Cardiopulmonary Arrest; Endotracheal Intubation; Insertion or Replacement of Mechanical Circulatory Assist Device Medical History Hand arthritis Vitamin D deficiency Osteopenia Osteoarthritis Obesity HTN, goal to be determined GERD (gastroesophageal reflux disease) COPD (chronic obstructive pulmonary disease) Surgical History H/O: hysterectomy S/P endoscopy Hx of cholecystectomy Hx of section Family History Family History Sister Afib Brain bleed Social History Social History (Updated 04/10/23 @ 16:21 by Joshua Brown PA-C) Housing: Apartment Unable to assess alcohol history related to: Unable to respond Alcohol intake: current Alcohol intake frequency: holidays/special occasions only Patient Tobacco Use Status: Former Tobacco user Quit Date: 2013 Tobacco use type: Cigarette Smoked in Last 30 Days: No e-Cigarette/Vaping Use: Never Used Second Hand Smoke Exposure: No Use of substances other than those prescribed or required for medical reasons: No Any prior treatment program specific to substance use: No Advance Directives: No Advance Directives Information Provided: No Current occupational status: retired Cognitive needs: No Hearing needs: No Vision needs: Yes Physical Exam ED Vital Signs: Vital Signs - 24 hr 07/04/23 10:28 07/04/23 15:21 07/04/23 16:07 Temperature 97.7 F 97.0 F Pulse Rate 94 97 85 Respiratory Rate 19 18 18 Blood Pressure 146/73 H 172/88 H 156/70 H Pulse Oximetry 99 96 98 Oxygen Delivery Method Room Air Room Air BMI result Body Mass Index 34.2 Appearance: Alert.?Oriented to person, place and time. No acute distress.?Normal affect. Eyes: Pupils equal, round and reactive to light.? ENT: Pharynx normal.?? Neck: Normal inspection.? Neck supple.?? CVS: Heart sounds normal. Normal heart rate and rhythm.? Pulses normal.?? Respiratory: No respiratory distress.? Lung sounds clear to auscultation bilaterally?? Abdomen: Soft with right lower quadrant tenderness to palpation. No rebound tenderness. No rigidity. No guarding. Normoactive bowel sounds. No pulsatile mass.?? Skin: Skin warm and dry.? Normal skin color.? Extremities: No lower extremity edema.? Neuro: Moves all extremities spontaneously. Sensation intact bilaterally. CN II- XII intact. No focal neuro deficits. Ambulates with normal steady gait. Course Course Course Narrative: This is a rapid medical exam: Additional HPI, ROS, PE not included below will be deferred to primary provider. Patient is a 68-year-old female with history of gastritis, duodenitis, and IBS presenting to the emergency department with complaint of fatigue, nausea, and diarrhea. Started sertraline Monday, took Monday am, Mon am, and Monday am but discontinued due to symptoms. Has zofran at home for nausea which she took without relief, decreased PO intake. Denies urinary symptoms. Right lower quadrant tenderness in triage. Plan: CT abdomen Reevaluation(s) Reevaluation #1: COVID and influenza testing are negative. CT reveals wall thickening and luminal narrowing of the ascending colon, which does correspond with the area of tenderness upon palpation that she experienced with the initial provider, may be physiologic versus colitis. I reviewed these findings with patient, she declines any interest in antibiotics and states she has only had a couple episodes of diarrhea over the past 2 days which is not atypical of her IBS. I think infectious colitis is less likely. At this time feel that she is stable for discharge home, outpatient follow-up with primary care provider. Discussed worrisome signs and symptoms that would warrant re-evaluation in the emergency department. All questions answered. Time: 17:25 Medications Administered Discontinued Medications Generic Name Dose Route Start Last Admin Trade Name Freq PRN Reason Stop Dose Admin Iohexol 100 ml 07/04/23 16:26 07/04/23 16:27 Iohexol 350 Mg/Ml 100 Ml Infus..Btl IV 07/04/23 16:27 85 ml ONCE ONE Administration Medical Decision Making Medical Decision Making MDM Narrative: Patient is a 68-year-old female with past medical history of osteopenia, osteoarthritis, hypertension, GERD, COPD, gastritis, IBS who presents emergency department for evaluation of fatigue with nausea and diarrhea, in the setting of recent initiation of sertraline. Overall she is well-appearing, nontoxic, afebrile. She is without tachycardia tachypnea or hypoxia. She denies URI symptoms, had COPD and reports her nonproductive cough is at baseline without any acute changes. Upon my examination she has mild tenderness diffusely throughout her abdomen, prior to my assumption of care she had predominant right lower quadrant tenderness to palpation for which a CT of the abdomen and pelvis was ordered, results are pending at this time. I reviewed labs obtained which reveals no evidence of leukocytosis or anemia. CMP is overall unremarkable. Lipase within normal limits, low likelihood for acute biliary or hepatic etiology for symptoms. High sensitive troponin is negative, EKG reveals normal sinus rhythm with ventricular rate of 89, QTC 423, no ST elevation ST depression, unlikely ACS as etiology for symptoms. Urinalysis without evidence of infection. Viral testing pending. I did review with patient half-life of sertraline, discussed possible etiology of symptoms secondary to adverse reaction of sertraline versus IBS. Differential Diagnosis Differential Diagnoses: The differential diagnosis associated with the presentation includes (As noted above) Admission/Observation Consideration of admission/observation: Escalation of care including admission/observation considered (See narrative above and course narrative for further details) Lab Data MDM Lab Attestation statement: I reviewed the patient's lab results. (See narrative above) 07/04/23 11:03 07/04/23 11:03 Labs: Lab Results 07/04/23 07/04/23 Range/Units 11:03 16:37 WBC 9.8 (4.8-10.8) X10*3/uL RBC 5.04 (4.20-5.50) X10*6/uL Hgb 13.5 (12.0-16.0) g/dl Hct 42.6 (37.0-47.0) % MCV 84.5 (80.0-98.0) fL MCH 26.8 L (27.0-33.0) pg MCHC 31.7 (31.0-35.0) g/dl RDW 14.1 (11.0-16.0) % Plt Count 237 (160-400) X10*3/uL MPV 11.5 (9.4-12.3) fL Immature Gran % (Auto) 0.3 (0.0-0.4) % Neut % (Auto) 79.2 H (45-73) % Lymph % (Auto) 14.2 L (20-40) % [place] % (Auto) 5.2 (2-11) % Eos % (Auto) 0.6 (0-4) % Baso % (Auto) 0.5 (0-2) % Lymph # (Auto) 1.4 (1.2-4.9) X10*3/uL [place] # (Auto) 0.5 (0.1-1.2) X10*3/uL Eos # (Auto) 0.1 (0.0-0.4) X10*3/uL Baso # (Auto) 0.1 (0.0-0.2) X10*3/uL Abs Immat Gran (auto) 0.03 (0.00-0.03) X10*3/uL Absolute Neuts (auto) 7.8 (2.0-8.3) x10*3/uL Absolute Nucleated RBC 0.000 (0.0-0.012) X10*3/uL Nucleated RBC % (auto) 0.0 (0.0-0.2) /100WBC Sodium 141 (135-145) mmol/L Potassium 4.1 (3.3-5.1) mmol/L Chloride 105 (96-108) mmol/L Carbon Dioxide 26 (22-29) mmol/L Anion Gap 14 (12-20) BUN 10 (9-16) mg/dL Creatinine 0.95 (0.5-1.4) mg/dL Estim Creat Clear Calc 52.8 Estimated GFR 58 Random Glucose 114 (60-115) mg/dL Calcium 9.8 (8.4-10.2) mg/dL Magnesium 1.9 (1.6-2.6) mg/dL Total Bilirubin 0.4 (0.0-1.0) mg/dL Direct Bilirubin 0.2 (0.0-0.5) mg/dL AST 15 (5-31) U/L ALT 15 (0-31) U/L Alkaline Phosphatase 75 (39-117) U/L Troponin I High Sens < 2.7 (<3.5-17.0) ng/L Total Protein 7.7 (6.5-8.0) g/dL Albumin 4.4 (3.5-5.0) g/dL Lipase 26 (8-78) U/L Urine Color Dark Yellow Urine Appearance Cloudy Urine pH 5.5 (5.0-9.0) Ur Specific [place] 1.025 (1.005-1.025) Urine Protein Trace (Neg-Trace) mg/dL Urine Glucose (UA) Negative (Negative) mg/dL Urine Ketones Trace (Negative) mg/dL Urine Blood Negative (Negative) Urine Nitrite Negative (Negative) Ur Leukocyte Esterase Trace H (Negative) Urine RBC 0-2 (0-2) /HPF Urine WBC 0-5 (0-5) /HPF Ur Squamous Epith Cells 11-20 (0-2) /HPF Urine Bacteria 3+ (None Seen) Hyaline Casts 3-5 (0-2) /LPF COVID-19 (MARAL) Negative (Negative) COVID-19 Clin Com See Note Influenza Type A (JES[facility]S) Negative (Negative) Influenza Type B (JES[facility]S) Negative (Negative) Influenza A & B Note See Note Independent Interpretation I performed an independent interpretation of an: EKG (See narrative above) and CT Scan Radiology Impression Discussion of test interpretation with radiology: I have reviewed the radiologist's reading. Independent Historian Clinical information obtained from an independent historian. History obtained from or confirmed by: Friend (Present who confirms history) External Record Review External record reviewed: Outpatient record Discharge Plan Discharge Clinical Impression: Fatigue Patient Disposition: Home, Self-Care Instructions: Fatigue (ED) Additional Instructions: As discussed, the symptoms you are experiencing may be an adverse reaction to the sertraline, which may take a few more days to completely resolve. Please contact your primary care provider to arrange for a follow-up visit should you continue to have these symptoms. You may also return back to emergency department with any new or worsening symptoms or concerns. Please be mindful to consume small frequent meals and stay well hydrated. Prescriptions: No Action amlodipine 5 mg tablet 5 mg PO DAILY Qty: 90 1RF omeprazole 40 mg capsule,delayed release(DR/EC) 40 mg PO QAM Qty: 90 1RF acetaminophen [Tylenol 8 Hour] 650 mg tablet extended release 650 mg PO Q12H 30 Days Qty: 60 5RF lisinopril 20 mg tablet 20 mg PO DAILY Qty: 90 1RF budesonide-formoterol [Symbicort] 160-4.5 mcg/actuation HFA aerosol inhaler 2 puff PO BID 30 Days Qty: 10.2 3RF sertraline 25 mg tablet 25 mg PO DAILY 30 Days Qty: 30 2RF ondansetron HCl 4 mg tablet 4 mg PO Q6-8H PRN (Reason: Nausea) gabapentin 100 mg capsule 100 mg PO DAILY albuterol sulfate 90 mcg/actuation HFA aerosol inhaler 2 puff inhalation Q6-8H PRN (Reason: Shortness Of Breath Or Wheezing) dicyclomine 10 mg capsule 10 - 20 mg PO Q6H PRN (Reason: cramps) Referrals: Joshua Brown PA-C [Primary Care Provider] -
[2023-07-04 15:21] VITALS: BP 172/88; PULSE 97; RESP 18; TEMP 36.1; O2SAT 96
[2023-07-04 16:07] VITALS: BP 156/70; PULSE 85; RESP 18; O2SAT 98
[2023-07-04] MEDS: iohexoL 350 MG/ML 100 ML INFUS..BTL IV (16:27)
[2023-07-04 17:00] LABS: COVID-19 Test Negative (Negative); IDNOW Serial# 08D9AD1C; IDNOW Serial# 152EDE1D; Influenza A Negative (Negative); Influenza B2 Negative (Negative)
== END 2023-07-04 17:43 | disposition home or self-care (01) ==
PROVIDERS: Nurse Practitioner Family; Emergency Provider Internal Medicine; PCP Physician Assistant
DX: R53.83 Other fatigue (principal); R10.31 Right lower quadrant pain; Z11.52 Encounter for screening for COVID-19
CPT/HCPCS: 36415; 74177; 80048; 80076; 81001; 83690; 83735; 84484; 85025; 87502; 87635; 93005; 99284; Q9967

== ENCOUNTER → 2023-07-04 10:36 | Outpatient (BNV) | payer OTHER, SELFPAY | PROVIDERS: PCP Physician Assistant; Visit Provider Internal Medicine | DX: R53.83 Other fatigue (principal) | CPT/HCPCS: 93010 ==

== ENCOUNTER 2023-10-10 14:19 | Outpatient (AMB) | payer OTHER, SELFPAY ==
--- NOTE | 2023-10-10 14:34 | MHC.PC.OV ---
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 Accompanied by: Self / Same As Patient Allergies sertraline Adverse Reaction (Intermediate, Verified 10/10/23 14:55) GI upset Medication List - Last Reconciled 10/10/23 by Joshua Brown PA-C acetaminophen ER (Tylenol 8 Hour) 650 mg PO Q12H 30 days albuterol sulfate 90 mcg/actuation 2 puffs inhalation Q6-8H PRN amlodipine 5 mg PO DAILY dicyclomine 10 - 20 mg PO Q6H PRN fluticasone furoate-vilanterol 100-25 mcg/dose (Breo Ellipta) 1 inh inhalation DAILY 30 days gabapentin 100 mg PO DAILY 90 days lisinopril 20 mg PO DAILY omeprazole 40 mg PO QAM ondansetron HCl 4 mg PO Q6-8H PRN Tobacco use date assessed: 10/10/23 Fall risk assessment: No Falls in past year Last assessed Fall Risk: 10/10/23 Dental Screening Dental Screen Date: 10/10/23 Did you have a dental visit in the last 12 months?: No Did you have a dental problem in the last 6 months where you did not have access to dental care?: No Was dental information given to patient?: No (DENTURES) HPI f/u HTN/ arthritis HPI Details Patient is a 68 y/o F here today for follow-up visit .?? Patient has a past medical history significant for hypertension, IBS, COPD and former smoker. . Polyarthritis: Patient now followed by arthritic treatment center was started on gabapentin 100 mg b.i.d. with decent relief of her arthritic pain. She has lost follow-up with her rheumatology group and would like to have PCP manage her gabapentin medication. . Hypertension:Blood pressure acceptable today in office.? She otherwise denies any chest discomfort, headaches, palpitations or vision issues. .. COPD: Has started on a new maintenance inhaler which has been helping her shortness of breath and cough. She has a 40 pack year smoking history. She is quit smoking nearly 14 years ago. She is still a candidate for low-dose CT chest for lung cancer screening and she is considering. . GERD: Followed by GI ( Dr Pedro) who prescribes her GI medication, also has IBS to which she uses dicyclomine for IBS.? will need upcoming colonoscopy 2022 [facility] Medical History Hand arthritis Vitamin D deficiency Osteopenia Osteoarthritis Obesity HTN, goal to be determined GERD (gastroesophageal reflux disease) COPD (chronic obstructive pulmonary disease) Surgical History H/O: hysterectomy S/P endoscopy Hx of cholecystectomy Hx of section Family History Sister Afib Brain bleed Social History Housing: Apartment Unable to assess alcohol history related to: Unable to respond Alcohol intake: current Alcohol intake frequency: holidays/special occasions only Patient Tobacco Use Status: Former Tobacco user Quit Date: 2013 Tobacco use type: Cigarette e-Cigarette/Vaping Use: Never Used Second Hand Smoke Exposure: No Current occupational status: retired Cognitive needs: No Hearing needs: No Vision needs: Yes Questionnaire PHQ-9 Over the last 2 weeks, how often have you been bothered by any of the following problems? 1. Little interest or pleasure in doing things: not at all 2. Feeling down, depressed, or hopeless: not at all 3. Trouble falling or staying asleep, or sleeping too much: not at all 4. Feeling tired or having little energy: not at all 5. Poor appetite or overeating: not at all 6. Feeling bad about yourself - or that you are a failure or have let yourself or your family down: not at all 7. Trouble concentrating on things, such as reading the newspaper or watching television: not at all 8. Moving or speaking so slowly that other people could have noticed. Or the opposite - being so fidgety or restless that you have been moving around a lot more than usual: not at all 9. Thoughts that you would be better off or of hurting yourself in some way: not at all Total score: 0 Depression Screening Interpretation: Negative Depression Screening Done: Yes 73576 - PHQ-9 Billing: Yes Source: Developed by Drs. Bernabe Nix, Edis Andujar and colleagues, with an educational cliff from [employer]. Thrive Questionnaire Date Thrive assessed: 10/10/23 I am a: Patient What is your living situation today?: I have a steady place to live Within the past 12 months, did the food you bought not last and you didn't have the money to get more?: Never true Within the past 12 months, did you worry whether your food would run out before you got money to buy more?: Never true Do you have trouble paying for medicines?: No Do you have trouble getting transportation to medical appointments?: No Do you have trouble paying your heating and electricity bill?: No Do you have trouble taking care of your child, family member or friend?: No Do you have trouble with day-to-day activities such as bathing, preparing meals, shopping, managing finances, etc.?: No Are you currently unemployed and looking for a job?: No Are you interested in more education?: No Please select the resources that you would like help with: None Currently or been in a relationship where the following occur: no concerns reported THRIVE Score: 0 AUDIT C Alcohol Use Questionnaire (AUDIT-C) 1. How often do you have a drink containing alcohol?: Never 3. How often do you have six or more drinks on one occasion?: Never Total Score: 0 MARIA TERESA-7 AMB Questionnaire MARIA TERESA-7 Date MARIA TERESA - 7 assessed: 10/10/23 Feeling nervous, anxious, or on edge: 0 = Not at all Not being able to stop or control worryin = Not at all Worrying too much about different things: 0 = Not at all Trouble relaxin = Not at all Being so restless that it is hard to sit still: 0 = Not at all Becoming easily annoyed or irritable: 0 = Not at all Feeling afraid as if something awful might happen: 0 = Not at all Total MARIA TERESA-7 score (0-4 normal; 5-9 mild; 10-14 moderate; 15-21 severe): 0 Source: Developed by Crista Alanis Kurt Kroenke and colleagues, with an educational cliff from [employer]. MARIA TERESA-7 Assessment Billing MARIA TERESA-7 Assessment Tool: MARIA TERESA-7 Assessment 89744 Review of Systems Const Denies headache(s) Eyes Denies loss of vision ENT Denies vertigo, Denies dizziness, Denies headache(s) and Denies sore throat Card Denies chest pain, Denies leg edema and Denies lightheadedness Resp Denies cough, Denies hemoptysis and Denies wheezing GI Denies abdominal pain, Denies melena, Denies constipation, Denies diarrhea and Denies vomiting Denies urinary frequency, Denies dysuria and Denies urinary urgency Musc Denies arthralgias, Denies joint swelling, Denies numbness and Denies tingling Neuro Denies Abnormal speech present, Denies behavioral changes, Denies vertigo, Denies dizziness, Denies headache(s), Denies loss of vision, Denies memory loss, Denies numbness and Denies tingling Psych Denies anxiety, Denies behavioral changes, Denies depression, Denies memory loss and Denies panic attacks Bryon/Lymph Denies easy bleeding and Denies easy bruising Aller/Immun Denies wheezing Physical exam (Primary Care) Vital Signs: Last Vital Signs Pulse 80 10/10/23 14:36 BP 136/60 10/10/23 14:36 Pulse Ox 97 10/10/23 14:36 Oxygen Delivery Method Room Air 10/10/23 14:36 BMI result Body Mass Index 35.2 Tobacco/Smoking Status: Tobacco use Status Tobacco use date assessed 10/10/23 10/10/23 14:43 Patient Tobacco Use Status Former Tobacco user 10/10/23 14:34 Tobacco use type Cigarette 10/10/23 14:34 e-Cigarette/Vaping Use Never Used 10/10/23 14:34 PHQ-9: PHQ-9 Score PHQ-9: Total score 0 10/10/23 15:05 Depression Screening Interpretation: Negative Thrive Assessment: Date of Thrive Assessment Date Thrive assessed 10/10/23 10/10/23 14:43 Currently or been in a relationship where the following occur: no concerns reported Const General: healthy appearing, no acute distress, alert and awake Nutritional Appearance: well nourished Orientation/consciousness: oriented to person, oriented to place and oriented to time HENMT Ears: TM's normal bilaterally General nose exam: Normal nasal mucous membranes and turbinates present Eyes Conjunctivae: conjunctivae normal Sclerae: sclerae normal Pupils: Equal, round and reactive pupils present Neck Neck: Yes no lymphadenopathy and Yes no JVD Thyroid: Thyroid normal Carotids: no bruits Resp Effort & Inspection: normal respiratory effort and not tachypneic Auscultation: no crackles, no rales, no rhonchi and no wheezes Cardio Rate: regular rate Rhythm: regular rhythm Heart sounds: no murmurs and normal S1 and S2 GI Palpation (GI): Soft to palpation, nontender, no hepatomegaly and no splenomegaly Auscultation: normal bowel sounds Skin General skin exam: no rashes or lesions noted and dry skin Neuro General: oriented to person, oriented to place and oriented to time Cranial nerves: Yes Equal, round and reactive pupils present Speech: No Abnormal speech present Gait exam (Neuro): Normal gait present Motor exam (neuro): no tremor noted Extrem Right upper extremity: full ROM Left upper extremity: full ROM Right lower extremity: full ROM; no edema Left lower extremity: full ROM; no edema Psych Mental Status: mental status grossly normal Speech and movement: Normal speech and movement present Affect: normal affect Attitude: cooperative Thought process: Normal thought process present Assessment and Plan Assessment & Plan (1) COPD (chronic obstructive pulmonary disease): Code(s): J44.9 - Chronic obstructive pulmonary disease, unspecified Qualifiers: COPD type: chronic bronchitis Chronic bronchitis type: simple Qualified Code(s): J41.0 - Simple chronic bronchitis Plan: Patient continues on maintenance inhaler with good effect. She denies any recent exacerbations in her COPD. Quit smoking many many years ago. (2) GERD (gastroesophageal reflux disease): Code(s): K21.9 - Gastro-esophageal reflux disease without esophagitis Qualifiers: Esophagitis presence: without esophagitis Qualified Code(s): K21.9 - Gastro-esophageal reflux disease without esophagitis Plan: Patient continues with PPI therapy with good effect on reducing her GERD symptoms. Again advised to stay way from gastric irritants. Has stop the use of NSAIDs GERD symptoms have been a bit better. (3) HTN, goal to be determined: Code(s): I10 - Essential (primary) hypertension Plan: Patient's blood pressure acceptable today in office. Will continue her current dose of lisinopril and amlodipine with goal blood pressure to remain below 140/90 . (4) Polyarthritis: Code(s): M13.0 - Polyarthritis, unspecified Plan: Patient was followed by arthritic treatment center though has lost her follow-up. Has been placed on gabapentin 100 mg b.i.d. which has been offering excellent relief of her arthritic pains. (5) Obese: Code(s): E66.9 - Obesity, unspecified Qualifiers: Body mass index: BMI 35.0-35.9 Obesity classification: adult class 2 (BMI 35 - 39.9) Obesity type: due to excess calories Serious obesity comorbidity presence: without serious comorbidity Qualified Code(s): E66.09 - Other obesity due to excess calories; Z68.35 - Body mass index [BMI] 35.0-35.9, adult Plan: Patient does understand her BMI is over 30 will continue working on being more physically active and adapting to better eating habits to reduce her weight Orders: Orders Microalbumin, Random (w Creat) 6 Months I10 - Essential (primary) hypertension Comprehensive [place]. Panel Fast 6 Months I10 - Essential (primary) hypertension Complete Blood Count no Diff 6 Months K21.9 - Gastro-esophageal reflux disease without esophagitis Patient Instructions: Goal: Maintain blood pressure below 140/90 Barriers: Compliance to healthy eating habits and exercise. Coding Level of Care Code Est Pt Level 4 (96288) Diagnoses Simple chronic bronchitis J41.0 COPD type: chronic bronchitis Chronic bronchitis type: simple Gastroesophageal reflux disease without esophagitis K21.9 Esophagitis presence: without esophagitis HTN, goal to be determined I10 Polyarthritis M13.0 Class 2 obesity due to excess calories without serious comorbidity with body mass index (BMI) of 35.0 to 35.9 in adult E66.09; Z68.35 Body mass index: BMI 35.0-35.9 Obesity classification: adult class 2 (BMI 35 - 39.9) Obesity type: due to excess calories Serious obesity comorbidity presence: without serious comorbidity Additional Codes MARIA TERESA-7 Assessment Billing - MARIA TERESA-7 Assessment Tool: MARIA TERESA-7 Assessment [id number] ([id number])
[2023-10-10 14:36] VITALS: BP 136/60; PULSE 80; O2SAT 97; BMI 35.2
== END 2023-10-10 15:16 | disposition home or self-care (01) ==
PROVIDERS: PCP Physician Assistant; Visit Provider Physician Assistant
DX: J41.0 Simple chronic bronchitis (principal); K21.9 Gastro-esophageal reflux disease without esophagitis; I10 Essential (primary) hypertension; M13.0 Polyarthritis, unspecified; E66.09 Other obesity due to excess calories; Z68.35 Body mass index [BMI] 35.0-35.9, adult
CPT/HCPCS: 99214

== ENCOUNTER 2024-02-21 10:16 | Outpatient (REF) | payer MEDICARE, SELFPAY ==
[2024-02-21 10:58] LABS: Hematocrit 41.1 % (37.0-47.0); Hemoglobin 12.7 g/dl (12.0-16.0); Mean Corpuscular HGB Conc 30.9 g/dl (31.0-35.0); Mean Corpuscular Volume 84.2 fL (80.0-98.0); Mean Platelet Volume 11.8 fL (9.4-12.3); Platelet Count 189 X10*3/uL (160-400); Red Blood Count 4.88 X10*6/uL (4.20-5.50); Red Cell Distribution Width 14.6 % (11.0-16.0); White Blood Count 8.9 X10*3/uL (4.8-10.8)
[2024-02-21 11:56] LABS: Alanine Aminotransferase 13 U/L (0-31); Albumin Level 4.4 g/dL (3.5-5.0); Alkaline Phosphatase 64 U/L (39-117); Anion Gap 14 (12-20); Aspartate Amino Transferase 17 U/L (5-31); Bilirubin Total 0.4 mg/dL (0.0-1.0); Blood Urea Nitrogen 10 mg/dL (9-16); Calcium 9.9 mg/dL (8.4-10.2); Carbon Dioxide 25 mmol/L (22-29); Chloride 106 mmol/L (96-108); Estimated Glomerular Filt Rate > 60; Glucose Fasting 106 mg/dL (60-99); Potassium 4.1 mmol/L (3.3-5.1); Sodium 141 mmol/L (135-145); Total Protein 7.5 g/dL (6.5-8.0)
[2024-02-21 12:39] LABS: Creatinine Urine 92.53 mg/dL; Microalbum/Creatinine Ratio Ur 7.5 ug/mg cr (<30)
== END 2024-02-21 10:17 | disposition home or self-care (01) ==
LOC: HO.LAB 10:16
PROVIDERS: Visit Provider Physician Assistant
DX: I10 Essential (primary) hypertension (principal); K21.9 Gastro-esophageal reflux disease without esophagitis
CPT/HCPCS: 36415; 80053; 82043; 82570; 85027

== ENCOUNTER 2024-03-09 11:45 | Emergency (ER) | payer MEDICARE, SELFPAY ==
--- NOTE | ~2024-03-09 | XR_ITS ---
EXAMINATION: XR CHEST CLINICAL INFORMATION: Epigastric pain. Palpitations. COMPARISON: None available. TECHNIQUE: 2 views of the chest were obtained. FINDINGS: The lungs are clear. The cardiomediastinal silhouette is normal in size. There is no pleural effusion or pneumothorax. No acute osseous abnormality. XR/XR chest 2V IMPRESSION: No acute cardiopulmonary findings. Electronically signed by: Nicanor Rodriguez MD 03/09/2024 02:26 PM EDT
[2024-03-09 11:55] VITALS: BP 152/85; PULSE 104; RESP 18; TEMP 36.8; O2SAT 98; BMI 35.4
--- NOTE | 2024-03-09 11:55 | ED.GENADULT ---
HPI - General Adult General Chief complaint: Arrhythmia/Palpitations Stated complaint: stomach pain Time Seen by Provider: 03/09/24 16:10 Source: patient, RN notes reviewed and old records reviewed Mode of arrival: ambulatory Limitations: no limitations History of Present Illness ED Provider: Armida HPI narrative: 68-year-old female past medical history significant for anxiety, IBS, hiatal hernia, hypertension, COPD presents for evaluation of palpitations and chest pain. Patient reports she has had intermittent episodes of upper abdominal and chest pain over the last few days. Her symptoms seem to be worse after eating but not always related to eating. Patient reports that she checked her pulse when she is experiencing these symptoms and it ?seemed fast and irregular. ? The patient has no known cardiac history She states that her sister has a history of AFib The patient follows with GI, Dr. Pedro. She had a recent endoscopy and colonoscopy in May of 2023 and ?everything was fine. ? The patient has previous section x2 Related Data Home Medications ?Medication ?Instructions ?Recorded ?Confirmed ondansetron HCl 4 mg tablet 4 mg PO Q6-8H PRN Nausea 05/25/23 10/10/23 Previous Rx's ?Medication ?Instructions ?Recorded gabapentin 100 mg capsule 100 mg PO DAILY 90 days #90 caps 07/11/23 acetaminophen 650 mg 650 mg PO Q12H 30 days #60 tabs 08/27/23 tablet,extended release (Tylenol 8 Hour) fluticasone furoate 100 1 inh inhalation DAILY 30 days #60 10/02/23 mcg-vilanterol 25 mcg/dose ea inhalation powder (Breo Ellipta) dicyclomine 10 mg capsule 10 - 20 mg (1 - 2 x 10 mg) PO Q6H 10/26/23 PRN cramps #180 caps lisinopril 20 mg tablet 20 mg PO DAILY #90 tabs 12/13/23 amlodipine 5 mg tablet 5 mg PO DAILY #90 tabs 12/15/23 omeprazole 40 mg capsule,delayed 40 mg PO QAM #90 caps 12/15/23 release albuterol sulfate 90 mcg/actuation 2 puff inhalation Q6-8H PRN 02/22/24 aerosol inhaler Shortness Of Breath Or Wheezing #8.5 grams budesonide-formoterol HFA 160 1 inh inhalation BID 30 days #10.2 02/22/24 mcg-4.5 mcg/actuation aerosol grams inhaler (Symbicort) Allergies Allergy/AdvReac Type Severity Reaction Status Date / Time sertraline AdvReac Intermediate GI upset Verified 03/09/24 11:59 Review of Systems Constitutional: Constitutional: Denies body ache(s), Denies chills, Denies fever(s) and Denies frequent falls Eyes: Eyes: Denies blurry vision ENT: Denies sore throat Cardiovascular: Cardiovascular: Reports chest pain, Reports rapid heart rate, Reports palpitations and Denies dyspnea Respiratory: Respiratory: Denies cough and Denies dyspnea Gastrointestinal: Gastrointestinal: Reports abdominal pain, Denies nausea and Denies vomiting Musculoskeletal: Musculoskeletal: Denies back pain Integumentary/Breasts: Skin/Breast: Denies rash Neurologic: Denies frequent falls Endocrine: Endocrine: Reports palpitations PMFSH Past Medical History Medical History Hand arthritis Vitamin D deficiency Osteopenia Osteoarthritis Obesity HTN, goal to be determined GERD (gastroesophageal reflux disease) COPD (chronic obstructive pulmonary disease) Surgical History H/O: hysterectomy S/P endoscopy Hx of cholecystectomy Hx of section Family History Family History Sister Afib Brain bleed Social History Social History Housing: Apartment Unable to assess alcohol history related to: Unable to respond Alcohol intake: current Alcohol intake frequency: holidays/special occasions only Patient Tobacco Use Status: Former Tobacco user Tobacco use type: Cigarette Smoked in Last 30 Days: No e-Cigarette/Vaping Use: Never Used Second Hand Smoke Exposure: No Use of substances other than those prescribed or required for medical reasons: No Advance Directives: No Advance Directives Information Provided: No Do you have a plan to hurt others: No Plan Current occupational status: retired Cognitive needs: No Hearing needs: No Vision needs: Yes Physical Exam ED Vital Signs: Vital Signs - 24 hr 03/09/24 11:55 03/09/24 15:13 Temperature 98.2 F 98.6 F Pulse Rate 104 H 84 Respiratory Rate 18 16 Blood Pressure 152/85 H 151/75 H Pulse Oximetry 98 98 Oxygen Delivery Method Room Air Room Air BMI result Body Mass Index 35.4 Const General: healthy appearing, comfortable, no acute distress, alert and awake Nutritional Appearance: well nourished Orientation/consciousness: patient oriented x3 HENMT Head: Yes normocephalic and Yes atraumatic Eyes Eyelids: Yes eyelids normal Conjunctivae: conjunctivae normal Sclerae: sclerae normal Corneas: corneas normal Pupils: Equal, round and reactive pupils present EOM: EOMs intact bilaterally Neck Neck: Yes full ROM Resp Effort & Inspection: normal respiratory effort, able to speak in complete sentences, no audible wheezes and not labored Auscultation: clear to auscultation bilaterally Cardio Rate: regular rate Rhythm: regular rhythm GI Inspection: No distended Palpation (GI): Soft to palpation, not firm, nontender, no guarding and not rigid Skin General skin exam: elasticity normal Neuro General: patient oriented x3 Cranial nerves: Yes Equal, round and reactive pupils present and Yes Bilaterally intact EOM present Cognition (Neuro): normal cognition Extrem Other: Moving all extremities well without any obvious deformities Course Course Course Narrative: This is a rapid medical exam performed by Bhavesh Benavidez NP: Additional HPI, ROS, PE not included below will be deferred to primary provider. Patient is a 68-year-old female with history of IBS, GERD, COPD presenting with complaint of epigastric pain, palpitations and change in HR. Plan: EKG, labs, CXR Medical Decision Making Medical Decision Making MDM Narrative: 68-year-old female with past medical history as documented above presents for evaluation of upper abdominal/chest pain as well as palpitations. Her symptoms have waxed and waned over the last few days, her labs show no significant worrisome abnormality, EKGs sinus rhythm without ectopy or arrhythmia. Her chest x-ray shows no pleural effusions, infiltrates, cardiomegaly, large hiatal hernia or masses. Patient's troponin is undetectable despite several days of the pain, this rules her out for ACS in addition to the nonischemic EKG. She is still passing gas and having bowel movements, bowel obstruction is less likely. She has no risk factors for PE. The patient is currently asymptomatic at this time, she may be discharged to follow up with her PCP Differential Diagnosis Differential Diagnoses: The differential diagnosis associated with the presentation includes Anxiety Abdominal pain GERD Hiatal hernia Palpitations Arrhythmia ACS less likely Chest pain Lab Data MDM Lab Attestation statement: I reviewed the patient's lab results. 03/09/24 12:12 03/09/24 12:12 Labs: Lab Results 03/09/24 Range/Units 12:12 WBC 8.3 (4.8-10.8) X10*3/uL RBC 4.77 (4.20-5.50) X10*6/uL Hgb 12.5 (12.0-16.0) g/dl Hct 40.1 (37.0-47.0) % MCV 84.1 (80.0-98.0) fL MCH 26.2 L (27.0-33.0) pg MCHC 31.2 (31.0-35.0) g/dl RDW 14.6 (11.0-16.0) % Plt Count 227 (160-400) X10*3/uL MPV 11.2 (9.4-12.3) fL Immature Gran % (Auto) 0.5 H (0.0-0.4) % Neut % (Auto) 75.2 H (45-73) % Lymph % (Auto) 17.8 L (20-40) % [place] % (Auto) 5.4 (2-11) % Eos % (Auto) 0.7 (0-4) % Baso % (Auto) 0.4 (0-2) % Lymph # (Auto) 1.5 (1.2-4.9) X10*3/uL [place] # (Auto) 0.5 (0.1-1.2) X10*3/uL Eos # (Auto) 0.1 (0.0-0.4) X10*3/uL Baso # (Auto) 0.0 (0.0-0.2) X10*3/uL Abs Immat Gran (auto) 0.04 H (0.00-0.03) X10*3/uL Absolute Neuts (auto) 6.2 (2.0-8.3) x10*3/uL Absolute Nucleated RBC 0.000 (0.0-0.012) X10*3/uL Nucleated RBC % (auto) 0.0 (0.0-0.2) /100WBC Sodium 142 (135-145) mmol/L Potassium 3.6 (3.3-5.1) mmol/L Chloride 109 H (96-108) mmol/L Carbon Dioxide 24 (22-29) mmol/L Anion Gap 13 (12-20) BUN 8 L (9-16) mg/dL Creatinine 0.85 (0.5-1.4) mg/dL Estim Creat Clear Calc 60.2 Estimated GFR > 60 Random Glucose 122 H (60-115) mg/dL Calcium 9.1 D (8.4-10.2) mg/dL Total Bilirubin 0.4 (0.0-1.0) mg/dL AST 15 (5-31) U/L ALT 13 (0-31) U/L Alkaline Phosphatase 68 (39-117) U/L Troponin I High Sens < 2.7 (<3.5-17.0) ng/L Total Protein 7.4 (6.5-8.0) g/dL Albumin 4.3 (3.5-5.0) g/dL Amylase 40 (28-100) U/L Lipase 24 (8-78) U/L Independent Interpretation I performed an independent interpretation of an: EKG (Normal sinus rhythm with a rate of 94 beats minute. The patient does have mild ST depressions in the lateral leads, unchanged when compared to previous from July 04, 2023.) and Plain X-Ray Interpretation: Agree with Radiology interpretation Radiology Impression Discussion of test interpretation with radiology: I have reviewed the radiologist's reading. Radiologist Impression: FINDINGS: The lungs are clear. The cardiomediastinal silhouette is normal in size. There is no pleural effusion or pneumothorax. No acute osseous abnormality. XR/XR chest 2V IMPRESSION: No acute cardiopulmonary findings. Discharge Plan Discharge Clinical Impression: Heart palpitations, Chest pain Patient Disposition: Home, Self-Care Instructions: Chest Pain (ED), Heart Palpitations (ED) Additional Instructions: Your workup in the ER today was reassuring. This includes your blood work, EKG, chest x-ray. Your symptoms may be related to anxiety I recommend you follow up with your primary doctor Return for new or worsening symptoms Prescriptions: No Action gabapentin 100 mg capsule 100 mg PO DAILY 90 Days Qty: 90 1RF acetaminophen [Tylenol 8 Hour] 650 mg tablet extended release 650 mg PO Q12H 30 Days Qty: 60 5RF fluticasone furoate-vilanterol [Breo Ellipta] 100-25 mcg/dose blister with device 1 inh inhalation DAILY 30 Days Qty: 60 3RF dicyclomine 10 mg capsule 10 - 20 mg PO Q6H PRN (Reason: cramps) Qty: 180 3RF lisinopril 20 mg tablet 20 mg PO DAILY Qty: 90 1RF amlodipine 5 mg tablet 5 mg PO DAILY Qty: 90 1RF omeprazole 40 mg capsule,delayed release(DR/EC) 40 mg PO QAM Qty: 90 1RF budesonide-formoterol [Symbicort] 160-4.5 mcg/actuation HFA aerosol inhaler 1 inh inhalation BID 30 Days Qty: 10.2 1RF albuterol sulfate 90 mcg/actuation HFA aerosol inhaler 2 puff inhalation Q6-8H PRN (Reason: Shortness Of Breath Or Wheezing) Qty: 8.5 0RF ondansetron HCl 4 mg tablet 4 mg PO Q6-8H PRN (Reason: Nausea) Interventions: ED Discharge Assessment Last Done: 03/09/24 16:54 Print Language: Bangladeshi
--- NOTE | 2024-03-09 11:56 | ECG_ITS ---
Test Reason : CP Blood Pressure : / mmHG Vent. Rate : 094 BPM Atrial Rate : 094 BPM P-R Int : 118 ms QRS Dur : 078 ms QT Int : 356 ms P-R-T Axes : 059 006 033 degrees QTc Int : 445 ms Normal sinus rhythm Nonspecific ST abnormality Abnormal ECG When compared with ECG of 04-JUL-2023 11:07, No significant change was found Referred By: Pushpa Benavidez Electronically Signed By:JAVIER SHARAM
[2024-03-09 12:19] LABS: Basophils Percent Auto 0.4 % (0-2); Eosinophils Absolute Auto 0.1 X10*3/uL (0.0-0.4); Eosinophils Percent Auto 0.7 % (0-4); Hematocrit 40.1 % (37.0-47.0); Hemoglobin 12.5 g/dl (12.0-16.0); Imm Gran Abs Auto 0.04 X10*3/uL (0.00-0.03); Imm Gran Pct Auto 0.5 % (0.0-0.4); Lymphocytes Absolute Auto 1.5 X10*3/uL (1.2-4.9); Lymphocytes Percent Auto 17.8 % (20-40); MANUAL DIFF FLAG NO; Mean Corpuscular HGB Conc 31.2 g/dl (31.0-35.0); Mean Corpuscular Hemoglobin 26.2 pg (27.0-33.0); Mean Corpuscular Volume 84.1 fL (80.0-98.0); Mean Platelet Volume 11.2 fL (9.4-12.3); Monocytes Absolute Auto 0.5 X10*3/uL (0.1-1.2); Monocytes Percent Auto 5.4 % (2-11); Neutrophils Absolute Auto 6.2 x10*3/uL (2.0-8.3); Neutrophils Percent Auto 75.2 % (45-73); Platelet Count 227 X10*3/uL (160-400); Red Blood Count 4.77 X10*6/uL (4.20-5.50); Red Cell Distribution Width 14.6 % (11.0-16.0); White Blood Count 8.3 X10*3/uL (4.8-10.8)
[2024-03-09 12:27] LABS: Amylase 40 U/L (28-100)
[2024-03-09 12:35] LABS: Alanine Aminotransferase 13 U/L (0-31); Albumin Level 4.3 g/dL (3.5-5.0); Alkaline Phosphatase 68 U/L (39-117); Anion Gap 13 (12-20); Aspartate Amino Transferase 15 U/L (5-31); Bilirubin Total 0.4 mg/dL (0.0-1.0); Blood Urea Nitrogen 8 mg/dL (9-16); Calcium 9.1 mg/dL (8.4-10.2); Carbon Dioxide 24 mmol/L (22-29); Chloride 109 mmol/L (96-108); Creatinine Clr Calc Pharmacy 60.2; Estimated Glomerular Filt Rate > 60; Glucose Random 122 mg/dL (60-115); Lipase 24 U/L (8-78); Potassium 3.6 mmol/L (3.3-5.1); Sodium 142 mmol/L (135-145); Total Protein 7.4 g/dL (6.5-8.0)
[2024-03-09 12:42] LABS: Troponin-I High Sensitivity < 2.7 ng/L (<3.5-17.0)
[2024-03-09 15:13] VITALS: BP 151/75; PULSE 84; RESP 16; TEMP 37; O2SAT 98
--- NOTE | 2024-03-09 15:22 | PC.NURSE ---
Pt comes to ED today from home for complaints of R epigastric/lower chest flutter like sensation. Pt reports sensation worsens with food consumption. Reports Hx Hiatal hernia, IBS, chronic nausea and diarrhea. VSS, afebrile, A&Ox3 Skin is warm and dry Breaths are slow, even, and unlabored. Cardiac monitoring in place.
[2024-03-09 16:54] VITALS: BP 164/73; PULSE 87; RESP 16; TEMP 36.8; O2SAT 97
== END 2024-03-09 17:10 | disposition home or self-care (01) ==
PROVIDERS: Registered Nurse Emergency; Emergency Provider Internal Medicine; PCP Physician Assistant
DX: R00.2 Palpitations (principal); R07.9 Chest pain, unspecified; I10 Essential (primary) hypertension; K44.9 Diaphragmatic hernia without obstruction or gangrene
CPT/HCPCS: 36415; 71046; 80053; 82150; 83690; 84484; 85025; 93005; 99283; 99285

== ENCOUNTER 2024-04-17 15:51 | Outpatient (AMB) | payer MEDICARE, SELFPAY ==
--- NOTE | 2024-04-17 15:57 | A.OFFPC_ITS ---
Vital Signs 04/17/24 16:05 Height 5 ft Weight 180 lb BMI 35.2 BP 122/60 Blood Pressure Location Lt brachial Position Sitting Pulse 90 Pulse Source Pulse Oximeter Pulse Oximetry (%) 95 Oxygen Delivery Method Room Air Intake Visit Reasons: Annual exam Intake Note: Patient is here today for a physical. Business Trainer Required: No Accompanied by: Self / Same As Patient Allergies buspirone [From BuSpar] Adverse Reaction (Intermediate, Verified 04/17/24 16:21) Heart palpitations sertraline Adverse Reaction (Intermediate, Verified 04/17/24 16:13) GI upset Medication List - Last Reconciled 04/17/24 by Joshua Brown PA-C acetaminophen ER (Tylenol 8 Hour) 650 mg PO Q12H 30 days albuterol sulfate 90 mcg/actuation 2 puffs inhalation Q6-8H PRN amlodipine 5 mg PO DAILY budesonide-formoterol 160-4.5 mcg/actuation (Symbicort) 1 inh inhalation BID 30 days dicyclomine 10 - 20 mg (1 - 2 x 10 mg) PO Q6H PRN fluticasone furoate-vilanterol 100-25 mcg/dose (Breo Ellipta) 1 inh inhalation DAILY 30 days gabapentin 100 mg PO DAILY 90 days lisinopril 20 mg PO DAILY omeprazole 40 mg PO QAM ondansetron HCl 4 mg PO Q6-8H PRN Tobacco use date assessed: 10/10/23 Fall risk assessment: No Falls in past year Last assessed Fall Risk: 04/17/24 Dental Screening Dental Screen Date: 10/10/23 HPI Annual exam HPI Details Patient is a 69 y/o F here today for a routine annual physical .?? Patient has a past medical history significant for hypertension, IBS, COPD and former smoker. Anxiety: Patient recently tried SSRI therapy and buspirone though had side effects to these medication. She reports she has started to become more alevism and actually got baptized recently and this has helped her mental health center binge asleep. . Polyarthritis: Patient now followed by arthritic treatment center was started on gabapentin 100 mg b.i.d. with decent relief of her arthritic pain. She has lost follow-up with her rheumatology group and would like to have PCP manage her gabapentin medication. . Hypertension:Blood pressure acceptable today in office.? She otherwise denies any chest discomfort, headaches, palpitations or vision issues. .. COPD: Has started on a new maintenance inhaler which has been helping her shortness of breath and cough. She has a 40 pack year smoking history. She is quit smoking nearly 14 years ago. She is still a candidate for low-dose CT chest for lung cancer screening and she is considering. . GERD: Followed by GI ( Dr Apodaca) who prescribes her GI medication, also has IBS to which she uses dicyclomine for IBS.? Colonoscopy: Up to date colonoscopy done in 2022 repeat 5 years due colon polyp found- followed by Dr apodaca Mammogram: Has upcoming appointment for mammogram-April 2024 .. VAccine: UTD COVID vaccine , up-to-date with tetanus [facility] Medical History Hand arthritis Vitamin D deficiency Osteopenia Osteoarthritis Obesity HTN, goal to be determined GERD (gastroesophageal reflux disease) COPD (chronic obstructive pulmonary disease) Surgical History H/O: hysterectomy S/P endoscopy Hx of cholecystectomy Hx of section Family History (Updated 04/17/24 @ 16:19 by Joshua Brown PA-C) Sister Afib Brain bleed Sister Aortic aneurysm Social History (Updated 04/17/24 @ 16:19 by Joshua Brown PA-C) Housing: Apartment Unable to assess alcohol history related to: Unable to respond Alcohol intake: current Alcohol intake frequency: holidays/special occasions only Patient Tobacco Use Status: Former Tobacco user Tobacco use type: Cigarette e-Cigarette/Vaping Use: Never Used Second Hand Smoke Exposure: No service: No Current occupational status: retired Cognitive needs: No Hearing needs: No Vision needs: Yes Questionnaire PHQ-9 Over the last 2 weeks, how often have you been bothered by any of the following problems? 1. Little interest or pleasure in doing things: not at all 2. Feeling down, depressed, or hopeless: not at all 3. Trouble falling or staying asleep, or sleeping too much: not at all 4. Feeling tired or having little energy: not at all 5. Poor appetite or overeating: not at all 6. Feeling bad about yourself - or that you are a failure or have let yourself or your family down: not at all 7. Trouble concentrating on things, such as reading the newspaper or watching television: not at all 8. Moving or speaking so slowly that other people could have noticed. Or the opposite - being so fidgety or restless that you have been moving around a lot more than usual: not at all 9. Thoughts that you would be better off or of hurting yourself in some way: not at all Total score: 0 Depression Screening Interpretation: Negative Depression Screening Done: Yes 63906 - PHQ-9 Billing: Yes Source: Developed by Drs. Bernabe Nix, Crista Avendaño, dEis Costello and colleagues, with an educational cliff from [employer]. Thrive Questionnaire Date Thrive assessed: 04/17/24 I am a: Patient What is your living situation today?: I have a steady place to live Within the past 12 months, did the food you bought not last and you didn't have the money to get more?: Never true Within the past 12 months, did you worry whether your food would run out before you got money to buy more?: Never true Do you have trouble paying for medicines?: No Do you have trouble getting transportation to medical appointments?: No Do you have trouble paying your heating and electricity bill?: No Do you have trouble taking care of your child, family member or friend?: No Do you have trouble with day-to-day activities such as bathing, preparing meals, shopping, managing finances, etc.?: No Are you currently unemployed and looking for a job?: No Are you interested in more education?: No Please select the resources that you would like help with: None Currently or been in a relationship where the following occur: No concerns reported THRIVE Score: 0 AUDIT C Alcohol Use Questionnaire (AUDIT-C) 1. How often do you have a drink containing alcohol?: Never 2. How many drinks containing alcohol do you have on a typical day when you are drinking?: 1 or 2 3. How often do you have six or more drinks on one occasion?: Never Total Score: 0 MARIA TERESA-7 AMB Questionnaire MARIA TERESA-7 Date MARIA TERESA - 7 assessed: 04/17/24 Feeling nervous, anxious, or on edge: 1 = Several days Not being able to stop or control worryin = Not at all Worrying too much about different things: 0 = Not at all Trouble relaxin = Not at all Being so restless that it is hard to sit still: 0 = Not at all Becoming easily annoyed or irritable: 0 = Not at all Feeling afraid as if something awful might happen: 0 = Not at all Total MARIA TERESA-7 score (0-4 normal; 5-9 mild; 10-14 moderate; 15-21 severe): 1 Source: Developed by Drs. Bernabe Nix, Crista Avendaño, Edis Costlelo and colleagues, with an educational cliff from [employer]. MARIA TERESA-7 Assessment Billing MARIA TERESA-7 Assessment Tool: MARIA TERESA-7 Assessment 43804 Review of Systems Const Denies body aches, Denies chills, Denies excessive sweating, Denies fatigue, Denies fever(s) and Denies headache(s) Eyes Denies blurry vision ENT Denies dysphagia, Denies vertigo, Denies dizziness, Denies headache(s), Denies hearing loss and Denies tinnitus Card Denies chest pain, Denies chest pain with activity, Denies syncope, Denies irregular heart rhythm and Denies dyspnea Resp Denies chest congestion, Denies cough, Denies hemoptysis, Denies dyspnea and Denies wheezing GI Denies abdominal pain, Denies melena, Denies hematochezia, Denies coffee ground emesis, Denies dysphagia, Denies diarrhea, Denies nausea and Denies vomiting Denies urinary frequency, Denies dysuria, Denies urinary hesitancy and Denies urinary urgency Musc Denies arthralgias, Denies limited range of motion, Denies muscle cramps and Denies muscle weakness Skin/Breast Denies rash and Denies skin ulcer Neuro Denies Abnormal speech present, Denies confusion, Denies vertigo, Denies dizziness, Denies syncope, Denies headache(s), Denies memory loss and Denies seizure-like activity Psych Denies anxiety, Denies confusion, Denies depression, Denies memory loss, Denies panic attacks and Denies paranoia Endo Denies excessive sweating, Denies fatigue, Denies flushing, Denies polydipsia and Denies polyuria Aller/Immun Denies wheezing Physical exam (Primary Care) Vital Signs: Last Vital Signs Pulse 90 10/24 16:05 BP 122/60 04/17/24 16:05 Pulse Ox 95 04/17/24 16:05 Oxygen Delivery Method Room Air 04/17/24 16:05 BMI result Body Mass Index 35.2 Tobacco/Smoking Status: Tobacco use Status Tobacco use date assessed 10/10/23 04/17/24 15:59 Patient Tobacco Use Status Former Tobacco user 04/17/24 16:19 Tobacco use type Cigarette 04/17/24 16:19 e-Cigarette/Vaping Use Never Used 04/17/24 16:19 PHQ-9: PHQ-9 Score PHQ-9: Total score 0 04/17/24 16:14 Depression Screening Interpretation: Negative Thrive Assessment: Date of Thrive Assessment Date Thrive assessed 04/17/24 04/17/24 15:59 Currently or been in a relationship where the following occur: No concerns reported Const General: cooperative, comfortable, no acute distress, alert and awake; No confu shoaib Orientation/consciousness: oriented to person, oriented to place, patient oriented x3 and No confusion HENMT Head: Yes normocephalic Ears: external ears normal and TM's normal bilaterally Face and sinus: No sinus tenderness Mouth: Normal oral and palatal mucosa present and tongue normal Teeth and gingiva: dentition normal and gingiva normal Throat: Yes posterior oropharynx normal, Yes tonsils normal and Yes uvula midline Eyes Conjunctivae: conjunctivae normal Sclerae: sclerae normal Pupils: Equal, round and reactive pupils present EOM: EOMs intact bilaterally Direct Ophthalmoscopy: No no photophobia Neck Neck: Yes no lymphadenopathy, No tender and Yes no JVD Thyroid: Thyroid normal Carotids: no bruits Chest Chest palpation & inspection: no tenderness Resp Effort & Inspection: normal respiratory effort, no audible wheezes, not labored and no stridor Auscultation: no crackles, no rales, no rhonchi and no wheezes Cardio Jugular venous distension: no JVD Rate: regular rate, not bradycardic and not tachycardic Rhythm: regular rhythm Bruits: no carotid bruits Peripheral pulses: Peripheral pulses 2+ throughout GI Inspection: Yes normal to inspection, No abdominal wall ecchymosis and No visible herniation Palpation (GI): Soft to palpation, nontender, no guarding, not rigid and No hepatosplenomegaly present Auscultation: normoactive bowel sounds General: Yes no CVA tenderness Back/Spine/Pelvis Back: no CVA tenderness and No back tenderness Cervical Spine: cervical ROM normal Thoracic/Lumbar Spine: thoracic and lumbar spine normal to inspection, straight leg raise negative bilaterally, No thoraco-lumbar ROM limited and No lumbar spinal tenderness Skin Lesions: no lesions Rashes: no rashes Wounds: no wounds Neuro General: oriented to person, oriented to place, patient oriented x3, CN's II-XI intact bilaterally and No confusion Cranial nerves: Yes Equal, round and reactive pupils present and Yes Normal accommodation reflex present Cognition (Neuro): normal cognition Speech: No Abnormal speech present Gait exam (Neuro): Normal gait present Motor exam (neuro): 5/5 motor strength present throughout Extrem Right upper extremity: full ROM; no cyanosis Left upper extremity: full ROM; no cyanosis Right lower extremity: no edema Left lower extremity: no edema Psych Appearance: grossly normal Mental Status: mental status grossly normal Affect: normal affect Attitude: cooperative Thought process: Normal thought process present Office Procedures Flu Questionnaire Does the patient have a severe egg allergy?: No Immunizations Fluarix Triv [id number] (PF) 45 mcg (15 mcg x 3)/0.5 mL IM syringe Performing Provider: Joshua Brown PA-C [facility] Documented (not given) by: TRISTAN Kee on 04/17/24 16:06 Reason Not Given: Received Previously Coding Level of Care Code Est Pt Prev Care >65y(88070) Diagnoses Annual physical exam Z00.00 HTN, goal to be determined I10 MARIA TERESA (generalized anxiety disorder) F41.1 Simple chronic bronchitis J41.0 COPD type: chronic bronchitis Chronic bronchitis type: simple Gastroesophageal reflux disease without esophagitis K21.9 Esophagitis presence: without esophagitis Additional Codes MARIA TERESA-7 Assessment Billing - MARIA TERESA-7 Assessment Tool: MARIA TERESA-7 Assessment 41548 ([id number]) Assessment & Plan Assessment & Plan (1) Annual physical exam: Code(s): Z00.00 - Encounter for general adult medical examination without abnormal findings Category: Medical Plan: As per HPI (2) HTN, goal to be determined: Code(s): I10 - Essential (primary) hypertension Category: Medical Plan: Patient's blood pressure acceptable today in office. Will continue current dose of lisinopril with goal blood pressure to remain below 140/90 (3) MARIA TERESA (generalized anxiety disorder): Code(s): F41.1 - Generalized anxiety disorder Category: Medical Plan: Patient reports her anxiety is much better since being more connected to his speech Urology. She had side effects to both buspirone and sertraline. (4) COPD (chronic obstructive pulmonary disease): Code(s): J44.9 - Chronic obstructive pulmonary disease, unspecified Category: Medical Qualifiers: COPD type: chronic bronchitis Chronic bronchitis type: simple Qualified Code(s): J41.0 - Simple chronic bronchitis Plan: Patient was not previous smoker. Patient's COPD is fairly stable with maintenance inhaler, only uses her albuterol inhaler on as needed basis. Denies any recent COPD exacerbations. (5) GERD (gastroesophageal reflux disease): Code(s): K21.9 - Gastro-esophageal reflux disease without esophagitis Category: Medical Qualifiers: Esophagitis presence: without esophagitis Qualified Code(s): K21.9 - Gastro-esophageal reflux disease without esophagitis Plan: continues on PPi therapy Orders: Orders Microalbumin, Random (w Creat) 04/17/24 I10 - Essential (primary) hypertension Influenza [id number] Immunization 04/17/24 Z23 - Encounter for immunization [employer]. Panel Fast 04/17/24 I10 - Essential (primary) hypertension Complete Blood Count no Diff 04/17/24 I10 - Essential (primary) hypertension Patient Instructions: Goal: Blood pressure to be below 140/90 Barriers: Adherence to physical activity and healthy eating habits.
[2024-04-17 16:05] VITALS: BP 122/60; PULSE 90; O2SAT 95; BMI 35.2
== END 2024-04-17 16:29 | disposition home or self-care (01) ==
LOC: HO.HMCH 15:52
PROVIDERS: PCP Physician Assistant; Visit Provider Physician Assistant
DX: Z00.00 Encounter for general adult medical examination without abnormal findings (principal); I10 Essential (primary) hypertension; F41.1 Generalized anxiety disorder; J41.0 Simple chronic bronchitis; K21.9 Gastro-esophageal reflux disease without esophagitis

== ENCOUNTER → 2024-04-17 15:51 | Outpatient (BNVA) | payer MEDICARE, SELFPAY | PROVIDERS: PCP Physician Assistant; Visit Provider Physician Assistant | DX: Z00.01 Encounter for general adult medical examination with abnormal findings (principal); I10 Essential (primary) hypertension; F41.1 Generalized anxiety disorder; J41.0 Simple chronic bronchitis; K21.9 Gastro-esophageal reflux disease without esophagitis | CPT/HCPCS: 90471; 96127; 99397 ==

== ENCOUNTER 2024-04-23 13:10 | Outpatient (REF) | payer MEDICARE, SELFPAY ==
--- NOTE | ~2024-04-23 | MM_ITS ---
EXAMINATION: MM SCREENING DIGITAL BREAST TOMOSYNTHESIS, BILATERAL CLINICAL INFORMATION: Screening. Asymptomatic. COMPARISON: Mammography: Comparison is made with available priors TECHNIQUE: Digital breast mammography with tomosynthesis is performed in both the craniocaudal and mediolateral oblique views along with computer-aided detection (CAD). FINDINGS: There are scattered areas of fibroglandular density (ACR BI-RADS breast composition Category b). There are no significant masses, abnormal calcifications, or other abnormalities. MM/MM tomosynthesis screening BI IMPRESSION: No mammographic evidence of malignancy. ASSESSMENT: BI-RADS BI-RADS 1 - Negative RECOMMENDATION: Routine annual mammography screening. 1 year F/U This examination should not preclude the clinical evaluation of a suspicious palpable abnormality. This patient's information was entered into a reminder system with a target due date for their next mammogram. Electronically signed by: Abigail John DO 05/01/2024 01:52 PM PANKAJ
== END 2024-04-23 13:11 | disposition home or self-care (01) ==
LOC: HO.MAMMO 13:10
PROVIDERS: PCP Physician Assistant; Visit Provider Physician Assistant
DX: Z12.31 Encounter for screening mammogram for malignant neoplasm of breast (principal)
CPT/HCPCS: 77063; 77067

== ENCOUNTER → 2024-04-23 13:30 | Outpatient (BNV) | payer MEDICARE, SELFPAY | PROVIDERS: PCP Physician Assistant; Visit Provider Internal Medicine | DX: Z12.31 Encounter for screening mammogram for malignant neoplasm of breast (principal) | CPT/HCPCS: 77063; 77067 ==

== ENCOUNTER 2024-07-30 09:09 | Outpatient (REF) | payer MEDICARE, SELFPAY ==
--- OUTSIDE RECORDS SUMMARY | 2024-07-30 10:16 | XMS_ITS ---
Author Organization [facility] Address [address] [place] [address] Care Team Providers Care Assistant In Nursing Name Role Phone Joshua Brown Primary Care Provider Unavailab Bernabe Davis Unavailable [phone] REASON FOR VISIT RE:New Refill Request Encounters Encounter Location Date Provider Diagnosis [facility] [address] [place] [address] 07/18/2024 Bernabe Pedro PLAN OF TREATMENT No Information
--- OUTSIDE RECORDS SUMMARY | 2024-07-30 10:16 | XMS_ITS | Patient Health Record ---
Author Organization [facility] Address [address] [place] [address] Care Team Providers Care Technical Planner Name Role Phone Joshua Brown Primary Care Provider Unavailab Bernabe Davis Unavailable [phone] ALLERGIES No Known Allergies REASON FOR REFERRAL No Information MEDICATIONS Medication SIG (Take, Route, Frequency, Duration) Notes Start Date End Date Status Gabapentin 100 MG 1 capsule Orally Onc e a day for 30 day(s) Active Arthritis Pain Reliever 650 MG TAKE 1 TABLET BY MOUTH EVERY 12 HOURS Oral for 30 M130,Unavailabl e Active Dicyclomine HCl 10 MG 1 or 2 capsules Orally Every 6 hours as needed for abdominal pain/cramps for 30 days Active Symbicort 160-4.5 MCG/ACT 2 PUFFS INHALATION 2 TIMES A DAY Inhalation for 30 Active amLODIPine Besylate 5 MG TAKE 1 TABLET BY MOUTH EVERY DAY Oral for 90 Active Lisinopril 10 MG TAKE 1 TABLET BY MOUTH EVERY DAY Oral Once a day Active Albuterol Sulfate HFA 108 (90 Base) MCG/ACT 2 puffs as needed Inhalation every 6 hrs/as directed Active Omeprazole 20 MG 1 Orally BID for 30 day(s) 10/13/2021 Active Ondansetron 4 MG 1 tablet on the tongue and allow to dissolve Orally Every 6 hours as needed for nausea for 30 day(s) 11/02/2023 Active Omeprazole 40 MG 1 QAM Orally Once a day for 30 day(s) 10/17/2021 Active Ondansetron HCl 4 MG TAKE 1 TABLET BY MOUTH EVERY 6 HOURS NEEDED FOR NAUSEA for 10 Active Ondansetron HCl 4 MG 1 tablet Orally Q 6 hours prn nausea for 30 days 09/05/2021 Active Omeprazole 40 MG 1 capsule 30 minutes before morning meal Orally Once a day for 30 day(s) 12/15/2023 Active Omeprazole 20 MG 1 Orally Once a day 01/15/2020 Active Ondansetron 4 MG 1 tablet on the tongue and allow to dissolve Orally Every 6 hours as needed for nausea for 30 day(s) 02/15/2023 Active Ondansetron 4 MG 1 tablet on the tongue and allow to dissolve Orally Use once every 6 hours prn nausea 05/06/2022 Active IMMUNIZATIONS Vaccine Route Administration Date Status Comme nts Influenza Unknown 03/19/2018 Administered Influenza Unknown 02/17/2019 Administered Influenza Unknown 02/17/2021 Administered Influenza Unknown 05/10/2022 Administered SOCIAL HISTORY Tobacco Use: Social History Observation Description Date Details (start date - stop date) Former Smoker NA - NA Sex Assigned At : Social History Observation Description Sex Assigned At Unknown Tobacco Use/Smoking Question Answer Notes Patient is a former smoker When did you stop smoking? quit 5 years ago How long has it been since you last smoked? 5-10 years Alcohol Screen Question Answer Notes Did you have a drink contain ing alcohol in the past year? Yes How often did you have a dri nk containing alcohol in the past year? Never (0 point) How many drinks did you have on a typical day when you were drinking in the past year? 1 or 2 drinks (0 point) How often did you have 6 or more drinks on one occasion in the past year? Never (0 point) Points 0 Interpretation Negative PROBLEMS Problem Type ICD Code Onset Dates Problem Status W/U Status Risk SNOMED Code Notes Problem Abdominal pain, epigastric (R10.13) Active confirmed 64853017 Problem Nausea (R11.0) Active confirmed 0007962 07 Problem Irritable bowel syndrome, unspecified type (K58.9) Active confirmed 13005667 Problem Gastroesophageal reflux disease without esophagitis (K21.9) Active confirmed 084867359 Problem Irritable bowel syndrome with diarrhea (K58.0) Active confirmed 274102930 Problem Abdominal discomfort (R10.9) Active confirmed 21479209 Problem Colon cancer screening (Z12.11) Active confirmed 406887479 Problem Hiatal hernia (K44.9) Active confirmed 70387571 Problem 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) Active confirmed 451103359 Problem Diarrhea, unspecified type (R19.7) Active confirmed 12215648 Problem Diverticulosis of large intestine without perforation or abscess without bleeding (K57.30) Active confirmed Diverticul ar disease of colon (291169680) Problem Gastritis (K29.70) Active confirmed Gas tritis (4800656) Problem Gastric polyp (K31.7) Active confirmed Gastric polyp (50051993) Encounters Encounter Location Date Provider Diagnosis [facility] [address] [place] [address] 03/20/2024 Bernabe Pedro [facility] [address] [place] [address] 08/03/2023 Bernabe Pedro [place] [facility] [address] [place] [address] 10/10/2023 Bernabe Pedro [facility] [address] [place] [address] 10/10/2023 Bernabe Cruz [facility] [address] [place] [address] 10/12/2023 Bernabe Pedro [facility] [address] [place] [address] 10/26/2023 Bernabe Cruz [facility] [address] [place] [address] 10/26/2023 Bernabe Pedro [facility] [address] [place] [address] 10/[facility] [address] [place] [address] 10/31/2023 Bernabe Pedro [facility] [address] [place] [address] 12/12/2023 eBrnabe Pedro [facility] [address] [place] [address] 12/12/2023 Bernabe Pedro [facility] [address] [place] [address] 12/12/2023 Bernabe Pedro [facility] [address] [place] [address] 12/12/2023 Bernabe Pedro [place] [facility] [address] [place] [address] 12/12/2023 Bernabe Cruz [facility] [address] [place] [address] 12/15/2023 Bernabe Cruz [facility] [address] [place] [address] 12/24/2023 Bernabe Cruz [facility] [address] [place] [address] 12/25/2023 Bernabe Cruz [facility] [address] [place] [address] 12/26/2023 Bernabe Cruz [facility] [address] [place] [address] 03/20/2024 Bernabe Cruz [facility] [address] [place] [address] 04/14/2024 Bernabe Cruz [facility] [address] [place] [address] 04/14/2024 Bernabe Cruz [facility] [address] [place] [address] 05/21/2024 Bernabe Cruz [facility] [address] [place] [address] 05/22/2024 Bernabe Cruz [facility] [address] [place] [address] 06/03/2024 Bernabe Cruz [facility] [address] [place] [address] 06/18/2024 Bernabe Cruz [facility] [address] [place] [address] 07/15/2024 Bernabe Cruz [facility] [address] [place] [address] 07/18/2024 Bernabe Pedro PLAN OF TREATMENT Pending Test Test Name Order Date LIVER PROFILE 07/14/2021 CBC w DIFF 07/14/2021 CELIAC PANEL #10 07/14/2021 Future Test Test Name Order Date UPPER GI ENDOSCOPY 07/24/2018 COLONOSCOPY 02/15/2023 UPPER GI ENDOSCOPY 04/13/2023 Insurance Providers Payer Name Payer Address Payer Phone Subscriber Number Group Number Insured Name Patient Relationship to Insured Coverage Start Date Coverage End Date [employer] [facility] [address] MARYJANE MARIE [id number] SANDHYA GARCÍA Self - patient is the insured 4 MEDICAL (GENERAL) HISTORY Medical History History ICD Code COPD Denies MS,DM,CVA,renal disease Hypertension EGD 10/2012-Dr. Medina at [facility]--justine cribed as normal Colonoscopy 10/2012-Dr. Casa joiner at [facility]--1 hyperplastic polyp removed--she reports being told to repeat a colonoscopy in 10 years Arthritis EGD in 08/2018 with a moderat e-sized HH, mild reflux esophagitis, benign gastric polyps, and no Mueller's. The gastric polyp biopsies were also negative for H. pylori Surgical History Surgery Date(Month/Year) C-sections x 2 cholecystectomy 1983 KRISTIAN 1985
--- OUTSIDE RECORDS SUMMARY | 2024-07-30 10:16 | XMS_ITS ---
Author Organization [facility] Address [address] [place] [address] Care Team Providers Care Tobacco Stemmer Machine Name Role Phone Joshua Brown Primary Care Provider Unavailab Bernabe Davis Unavailable [phone] REASON FOR VISIT New Refill Request Encounters Encounter Location Date Provider Diagnosis [facility] [address] [place] [address] 07/15/2024 Bernabe Pedro PLAN OF TREATMENT No Information
--- OUTSIDE RECORDS SUMMARY | 2024-07-30 10:16 | XMS_ITS ---
Author Organization [facility] Address [address] [place] [address] Care Team Providers Care Business Account Specialist Name Role Phone Joshua Brown Primary Care Provider Unavailab Bernabe Davis Unavailable [phone] REASON FOR VISIT New Refill Request Encounters Encounter Location Date Provider Diagnosis [facility] [address] [place] [address] 06/18/2024 Bernabe Pedro PLAN OF TREATMENT No Information
[2024-07-30 11:25] LABS: Hematocrit 40.4 % (37.0-47.0); Hemoglobin 12.3 g/dl (12.0-16.0); Mean Corpuscular HGB Conc 30.4 g/dl (31.0-35.0); Mean Corpuscular Hemoglobin 25.7 pg (27.0-33.0); Mean Corpuscular Volume 84.3 fL (80.0-98.0); Mean Platelet Volume 12.4 fL (9.4-12.3); Platelet Count 240 X10*3/uL (160-400); Red Blood Count 4.79 X10*6/uL (4.20-5.50); Red Cell Distribution Width 14.6 % (11.0-16.0); White Blood Count 6.7 X10*3/uL (4.8-10.8)
[2024-07-30 11:29] LABS: Appearance Urine Clear; Color Urine Yellow; Glucose Urine UA Negative (Negative); Leukocyte Esterase Urine Negative (Negative); Nitrite Urine Negative (Negative); PH 5.5 (5.0-9.0); Specific Gravity - Urine 1.015 (1.005-1.025); Urine Blood Negative (Negative); Urine Ketones Negative (Negative); Urine Protein Negative (Neg-Trace)
[2024-07-30 12:52] LABS: Anion Gap 11 (12-20); Blood Urea Nitrogen 13 mg/dL (9-16); Calcium 9.2 mg/dL (8.4-10.2); Carbon Dioxide 26 mmol/L (22-29); Chloride 107 mmol/L (96-108); Estimated Glomerular Filt Rate > 60; Glucose Random 112 mg/dL (60-115); Sodium 140 mmol/L (135-145)
[2024-07-30 14:10] LABS: Influenza A PCR NEGATIVE (Negative); Influenza B PCR NEGATIVE (Negative); Resp Syncy Virus RNA Qual PCR NEGATIVE (Negative); SARS COV2 PCR INHOUSE NEGATIVE (Negative)
== END 2024-07-30 09:10 | disposition home or self-care (01) ==
LOC: HO.LAB 09:09
PROVIDERS: PCP Physician Assistant; Visit Provider Physician Assistant
DX: I10 Essential (primary) hypertension (principal); R30.0 Dysuria; R09.89 Other specified symptoms and signs involving the circulatory and respiratory systems; R53.83 Other fatigue
CPT/HCPCS: 0241U; 80048; 81003; 85027

== ENCOUNTER 2024-10-11 09:02 | Outpatient (REF) | payer MEDICARE, SELFPAY ==
[2024-10-11 09:48] LABS: Hematocrit 38.2 % (37.0-47.0); Hemoglobin 11.5 g/dl (12.0-16.0); Mean Corpuscular HGB Conc 30.1 g/dl (31.0-35.0); Mean Corpuscular Hemoglobin 24.9 pg (27.0-33.0); Mean Corpuscular Volume 82.9 fL (80.0-98.0); Mean Platelet Volume 12.1 fL (9.4-12.3); Platelet Count 207 X10*3/uL (160-400); Red Blood Count 4.61 X10*6/uL (4.20-5.50); Red Cell Distribution Width 14.4 % (11.0-16.0); White Blood Count 7.4 X10*3/uL (4.8-10.8)
[2024-10-11 10:17] LABS: Alanine Aminotransferase 18 U/L (0-31); Albumin Level 4.3 g/dL (3.5-5.0); Alkaline Phosphatase 62 U/L (39-117); Anion Gap 11 (12-20); Aspartate Amino Transferase 18 U/L (5-31); Bilirubin Total 0.4 mg/dL (0.0-1.0); Blood Urea Nitrogen 17 mg/dL (9-16); Calcium 9.5 mg/dL (8.4-10.2); Carbon Dioxide 27 mmol/L (22-29); Chloride 106 mmol/L (96-108); Estimated Glomerular Filt Rate > 60; Glucose Fasting 97 mg/dL (60-99); Potassium 4.2 mmol/L (3.3-5.1); Sodium 140 mmol/L (135-145); Total Protein 7.2 g/dL (6.5-8.0)
[2024-10-11 11:00] LABS: Creatinine Urine 52.83 mg/dL; Microalbumin Urine < 5.0 mg/L
== END 2024-10-11 09:03 | disposition home or self-care (01) ==
LOC: HO.LAB 09:02
PROVIDERS: PCP Physician Assistant; Visit Provider Physician Assistant
DX: I10 Essential (primary) hypertension (principal); R09.89 Other specified symptoms and signs involving the circulatory and respiratory systems; R53.83 Other fatigue
CPT/HCPCS: 36415; 80053; 82570; 85027

== ENCOUNTER 2024-10-15 14:28 | Outpatient (AMB) | payer MEDICARE, SELFPAY ==
[2024-10-15 14:52] VITALS: BP 154/80; PULSE 89; TEMP 36.5; O2SAT 97; BMI 35.6
--- NOTE | 2024-10-15 14:52 | A.OFFPC_ITS ---
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 Required: No Accompanied by: Self / Same As Patient Allergies buspirone [From BuSpar] Adverse Reaction (Intermediate, Verified 10/15/24 15:17) Heart palpitations sertraline Adverse Reaction (Intermediate, Verified 10/15/24 15:17) GI upset Medication List - Last Reconciled 10/15/24 by Joshua Brown PA-C acetaminophen ER (Tylenol 8 Hour) 650 mg PO Q12H 30 days albuterol sulfate 90 mcg/actuation 2 puffs inhalation Q6-8H PRN amlodipine 5 mg PO DAILY budesonide-formoterol 160-4.5 mcg/actuation (Symbicort) 1 inh inhalation BID 30 days dicyclomine 10 - 20 mg (1 - 2 x 10 mg) PO Q6H PRN fluticasone furoate-vilanterol 100-25 mcg/dose (Breo Ellipta) 1 inh inhalation DAILY 30 days gabapentin 100 mg PO DAILY 90 days lisinopril 20 mg PO DAILY omeprazole 40 mg PO QAM ondansetron HCl 4 mg PO Q6-8H PRN Tobacco use date assessed: 10/15/24 Fall risk assessment: No Falls in past year Last assessed Fall Risk: 10/15/24 Dental Screening Dental Screen Date: 10/15/24 Did you have a dental visit in the last 12 months?: Yes Did you have a dental problem in the last 6 months where you did not have access to dental care?: No Was dental information given to patient?: Patient has dentist HPI f/u HTN HPI Details Patient is a 69 y/o F here today for a follow-up visit .?? Patient has a past medical history significant for hypertension, IBS, COPD and former s moker. Anxiety: Patient recently tried SSRI therapy and buspirone though had side effects to these medication. She reports she has started to become more mandaen and actually got baptized recently and this has helped her mental health center binge asleep. . Polyarthritis: Patient now followed by arthritic treatment center was started on gabapentin 100 mg b.i.d. with decent relief of her arthritic pain. She has lost follow-up with her rheumatology group and would like to have PCP manage her gabapentin medication. . Hypertension:Blood pressure acceptable today in office.? She otherwise denies any chest discomfort, headaches, palpitations or vision issues. .. COPD: Has started on a new maintenance inhaler which has been helping her shortness of breath and cough. She has a 40 pack year smoking history. She is quit smoking nearly 14 years ago. She is still a candidate for low-dose CT chest for lung cancer screening and she is considering. . GERD: Followed by GI ( Dr Pedro) who prescribes her GI medication, also has IBS to which she uses dicyclomine for IBS.? PFSH Medical History Hand arthritis Vitamin D deficiency Osteopenia Osteoarthritis Obesity HTN, goal to be determined GERD (gastroesophageal reflux disease) COPD (chronic obstructive pulmonary disease) Surgical History H/O: hysterectomy S/P endoscopy Hx of cholecystectomy Hx of section Family History Sister Afib Brain bleed Sister Aortic aneurysm Social History Housing: Apartment Unable to assess alcohol history related to: Unable to respond Alcohol intake: current Alcohol intake frequency: holidays/special occasions only Patient Tobacco Use Status: Former Tobacco user Tobacco use type: Cigarette e-Cigarette/Vaping Use: Never Used Second Hand Smoke Exposure: No service: No Current occupational status: retired Cognitive needs: No Hearing needs: No Vision needs: Yes Questionnaire PHQ-9 Over the last 2 weeks, how often have you been bothered by any of the following problems? 1. Little interest or pleasure in doing things: not at all 2. Feeling down, depressed, or hopeless: not at all 3. Trouble falling or staying asleep, or sleeping too much: not at all 4. Feeling tired or having little energy: not at all 5. Poor appetite or overeating: not at all 6. Feeling bad about yourself - or that you are a failure or have let yourself or your family down: not at all 7. Trouble concentrating on things, such as reading the newspaper or watching television: not at all 8. Moving or speaking so slowly that other people could have noticed. Or the opposite - being so fidgety or restless that you have been moving around a lot more than usual: not at all 9. Thoughts that you would be better off or of hurting yourself in some way: not at all Total score: 0 Depression Screening Interpretation: Negative Depression Screening Done: Yes 56311 - PHQ-9 Billing: Yes Source: Developed by Drs. Bernabe Nix, Crista Avendaño, Edis Costello and colleagues, with an educational cliff from [employer]. Thrive Questionnaire Date Thrive assessed: 10/15/24 I am a: Patient What is your living situation today?: I have a steady place to live Within the past 12 months, did the food you bought not last and you didn't have the money to get more?: Never true Within the past 12 months, did you worry whether your food would run out before you got money to buy more?: Never true Do you have trouble paying for medicines?: No Do you have trouble getting transportation to medical appointments?: No Do you have trouble paying your heating and electricity bill?: No Do you have trouble taking care of your child, family member or friend?: No Do you have trouble with day-to-day activities such as bathing, preparing meals, shopping, managing finances, etc.?: No Are you currently unemployed and looking for a job?: No Are you interested in more education?: No Please select the resources that you would like help with: None Currently or been in a relationship where the following occur: No concerns reported THRIVE Score: 0 AUDIT C Alcohol Use Questionnaire (AUDIT-C) 1. How often do you have a drink containing alcohol?: Monthly or less 2. How many drinks containing alcohol do you have on a typical day when you are drinking?: 1 or 2 3. How often do you have six or more drinks on one occasion?: Never Total Score: 1 MARIA TERESA-7 AMB Questionnaire MARIA TERESA-7 Date MARIA TERESA - 7 assessed: 10/15/24 Feeling nervous, anxious, or on edge: 0 = Not at all Not being able to stop or control worryin = Not at all Worrying too much about different things: 0 = Not at all Trouble relaxin = Not at all Being so restless that it is hard to sit still: 0 = Not at all Becoming easily annoyed or irritable: 0 = Not at all Feeling afraid as if something awful might happen: 0 = Not at all Total MARIA TERESA-7 score (0-4 normal; 5-9 mild; 10-14 moderate; 15-21 severe): 0 Source: Developed by Drs. Bernabe Nix, Crista Avendaño, Edis Costello and colleagues, with an educational cliff from [employer]. MARIA TERESA-7 Assessment Billing MARIA TERESA-7 Assessment Tool: MARIA TERESA-7 Assessment 30431 Review of Systems Const Denies headache(s) Eyes Denies loss of vision ENT Denies vertigo, Denies dizziness, Denies headache(s) and Denies sore throat Card Denies chest pain, Denies leg edema and Denies lightheadedness Resp Denies cough, Denies hemoptysis and Denies wheezing GI Denies abdominal pain, Denies melena, Denies constipation, Denies diarrhea and Denies vomiting Denies urinary frequency, Denies dysuria and Denies urinary urgency Musc Denies arthralgias, Denies joint swelling, Denies numbness and Denies tingling Neuro Denies Abnormal speech present, Denies behavioral changes, Denies vertigo, Denies dizziness, Denies headache(s), Denies loss of vision, Denies memory loss, Denies numbness and Denies tingling Psych Denies anxiety, Denies behavioral changes, Denies depression, Denies memory loss and Denies panic attacks Bryon/Lymph Denies easy bleeding and Denies easy bruising Aller/Immun Denies wheezing Physical exam (Primary Care) Vital Signs: Last Vital Signs Temp 97.7 F 10/15/24 14:52 Pulse 89 10/15/24 14:52 BP 154/80 H 10/15/24 14:52 Pulse Ox 97 10/15/24 14:52 Oxygen Delivery Method Room Air 10/15/24 14:52 BMI result Body Mass Index 35.6 BMI Assessment/Plan discussion: High BMI High, discussed plan: lifestyle, weight reduction, dietary and physical activity Tobacco/Smoking Status: Tobacco use Status Tobacco use date assessed 10/15/24 10/15/24 15:15 Patient Tobacco Use Status Former Tobacco user 10/15/24 14:52 Tobacco use type Cigarette 10/15/24 14:52 e-Cigarette/Vaping Use Never Used 10/15/24 14:52 PHQ-9: PHQ-9 Score PHQ-9: Total score 0 10/15/24 15:18 Depression Screening Interpretation: Negative Thrive Assessment: Date of Thrive Assessment Date Thrive assessed 10/15/24 10/15/24 15:15 Currently or been in a relationship where the following occur: No concerns reported Const General: healthy appearing, no acute distress, alert and awake Nutritional Appearance: well nourished Orientation/consciousness: oriented to person, oriented to place and oriented to time HENMT Ears: TM's normal bilaterally General nose exam: Normal nasal mucous membranes and turbinates present Eyes Conjunctivae: conjunctivae normal Sclerae: sclerae normal Pupils: Equal, round and reactive pupils present Neck Neck: Yes no lymphadenopathy and Yes no JVD Thyroid: Thyroid normal Carotids: no bruits Resp Effort & Inspection: normal respiratory effort and not tachypneic Auscultation: no crackles, no rales, no rhonchi and no wheezes Cardio Rate: regular rate Rhythm: regular rhythm Heart sounds: no murmurs and normal S1 and S2 GI Palpation (GI): Soft to palpation, nontender, no hepatomegaly and no splenomegaly Auscultation: normal bowel sounds Skin General skin exam: no rashes or lesions noted and dry skin Neuro General: oriented to person, oriented to place and oriented to time Cranial nerves: Yes Equal, round and reactive pupils present Speech: No Abnormal speech present Gait exam (Neuro): Normal gait present Motor exam (neuro): no tremor noted Extrem Right upper extremity: full ROM Left upper extremity: full ROM Right lower extremity: full ROM; no edema Left lower extremity: full ROM; no edema Psych Mental Status: mental status grossly normal Speech and movement: Normal speech and movement present Affect: normal affect Attitude: cooperative Thought process: Normal thought process present Coding Level of Care Code Est Pt Level 4 (42480) Diagnoses HTN, goal to be determined I10 MARIA TERESA (generalized anxiety disorder) F41.1 Simple chronic bronchitis J41.0 COPD type: chronic bronchitis Chronic bronchitis type: simple Additional Codes MARIA TERESA-7 Assessment Billing - MARIA TERESA-7 Assessment Tool: MARIA TERESA-7 Assessment 34144 ([id number]) PHQ-9 - 85082 - PHQ-9 Billing: Yes ([id number]) Assessment & Plan Assessment & Plan (1) HTN, goal to be determined: Code(s): I10 - Essential (primary) hypertension Category: Medical Plan: Patient's blood pressure acceptable today in office. Will continue current dose of lisinopril with goal blood pressure to remain below 140/90 (2) MARIA TERESA (generalized anxiety disorder): Code(s): F41.1 - Generalized anxiety disorder Category: Medical Plan: Patient reports her anxiety is much better since being more connected to his speech Urology. She had side effects to both buspirone and sertraline. (3) COPD (chronic obstructive pulmonary disease): Code(s): J44.9 - Chronic obstructive pulmonary disease, unspecified Category: Medical Qualifiers: COPD type: chronic bronchitis Chronic bronchitis type: simple Qualified Code(s): J41.0 - Simple chronic bronchitis Plan: Patient was not previous smoker. Patient's COPD is fairly stable with maintenance inhaler, only uses her albuterol inhaler on as needed basis. Denies any recent COPD exacerbations. Orders: Orders Comprehensive [facility]. Panel Fast 10/15/24 I10 - Essential (primary) hypertension Complete Blood Count no Diff 10/15/24 I10 - Essential (primary) hypertension Medications: Refilled lisinopril 20 mg PO DAILY 90 tabs 1RF I10 - Essential (primary) hypertension amlodipine 5 mg PO DAILY 90 tabs 1RF I10 - Essential (primary) hypertension Patient Instructions: Goal: Blood pressure to remain below 140/90 Barriers: Adherence to physical activity and healthy eating habits
== END 2024-10-15 15:38 | disposition home or self-care (01) ==
LOC: HO.HMCH 14:29
PROVIDERS: PCP Physician Assistant; Visit Provider Physician Assistant
DX: I10 Essential (primary) hypertension (principal); F41.1 Generalized anxiety disorder; J41.0 Simple chronic bronchitis

== ENCOUNTER → 2024-10-15 14:28 | Outpatient (BNVA) | payer MEDICARE, SELFPAY | PROVIDERS: PCP Physician Assistant; Visit Provider Physician Assistant | DX: I10 Essential (primary) hypertension (principal); F41.1 Generalized anxiety disorder; J41.0 Simple chronic bronchitis; Z79.899 Other long term (current) drug therapy | CPT/HCPCS: 96127; 99212 ==

== ENCOUNTER 2024-10-23 10:46 | Outpatient (REF) | payer MEDICARE, SELFPAY ==
--- NOTE | ~2024-10-23 | US_ITS ---
CLINICAL HISTORY: R10.13 - Epigastric pain US abdomen complete Comparison: None Findings: Cholecystectomy. Common duct 6 mm. Fatty infiltration of the liver without focal abnormality. Main portal vein patent with normal direction of flow. Pancreas is unremarkable. Aorta and IVC patent and normal in caliber. The right kidney is normal, 10.2 cm in length. No focal abnormality or hydronephrosis. The left kidney is normal, 10.2 cm in length. No focal abnormality or hydronephrosis. The spleen is normal, 10.0 cm in length. No focal abnormality. Impression: Fatty infiltration of the liver, otherwise unremarkable This document has been electronically signed by: Andreas Aggarwal MD on 10/23/2024 18:53:06
== END 2024-10-23 10:47 | disposition home or self-care (01) ==
LOC: HO.US 10:46
PROVIDERS: PCP Physician Assistant; Visit Provider Physician Assistant
DX: R10.13 Epigastric pain (principal)
CPT/HCPCS: 76700

== ENCOUNTER → 2024-10-23 10:48 | Outpatient (BNV) | payer MEDICARE, SELFPAY | PROVIDERS: PCP Physician Assistant; Visit Provider Radiology Diagnostic Radiology | DX: K76.0 Fatty (change of) liver, not elsewhere classified (principal) | CPT/HCPCS: 76700 ==

== ENCOUNTER 2025-04-22 08:47 | Outpatient (REF) | payer MEDICARE, SELFPAY ==
--- NOTE | ~2025-04-22 | XR_ITS ---
EXAMINATION: XR BILATERAL HIPS CLINICAL INFORMATION: M16.0 - Bilateral primary osteoarthritis of hip COMPARISON: None available. TECHNIQUE: AP and frog-leg lateral views of each hip. FINDINGS: RIGHT HIP: There is no fracture, dislocation, or suspicious bone lesion. There is normal alignment. Mild degenerative arthrosis is present with minimal joint space narrowing, and small subcapital osteophytes. Normal femoral head contour without evidence of AVN. Normal acetabular coverage. Normal-appearing soft tissues. LEFT HIP: There is no fracture, dislocation, or suspicious bone lesion. There is normal alignment. Mild degenerative arthrosis is present with minimal joint space narrowing, and small subcapital osteophytes. Normal femoral head contour without evidence of AVN. Normal acetabular coverage. Normal-appearing soft tissues. XR/XR hips ARIANNA min 3V IMPRESSION: 1. Mild bilateral hip joint osteoarthrosis. Electronically signed by: Ilia Goff MD 04/22/2025 10:[address] [facility]
== END 2025-04-22 08:48 | disposition home or self-care (01) ==
LOC: HO.XRAY 08:47
PROVIDERS: PCP Physician Assistant; Visit Provider Physician Assistant
DX: Z00.00 Encounter for general adult medical examination without abnormal findings (principal); I10 Essential (primary) hypertension; K58.9 Irritable bowel syndrome, unspecified; J44.9 Chronic obstructive pulmonary disease, unspecified; R10.20 Pelvic and perineal pain unspecified side; M16.0 Bilateral primary osteoarthritis of hip; K21.9 Gastro-esophageal reflux disease without esophagitis; J41.0 Simple chronic bronchitis; E66.9 Obesity, unspecified; Z87.891 Personal history of nicotine dependence; Z68.35 Body mass index [BMI] 35.0-35.9, adult
CPT/HCPCS: 73522; 96127; 99397

== ENCOUNTER 2025-04-22 08:47 | Outpatient (AMB) | payer MEDICARE, SELFPAY ==
[2025-04-22 08:50] VITALS: BP 170/90; PULSE 83; TEMP 36.3; O2SAT 99; BMI 35.2
--- NOTE | 2025-04-22 08:50 | A.OFFPC_ITS ---
Vital Signs 04/22/25 08:50 Height 5 ft Weight 180 lb 4 oz BMI 35.2 BP 170/90 H Blood Pressure Location Rt brachial Position Sitting Pulse 83 Pulse Source Pulse Oximeter Temp 97.3 F Temp Source Temporal Artery Scan Pulse Oximetry (%) 99 Oxygen Delivery Method Room Air Intake Visit Reasons: PE Anodizer Required: No Accompanied by: Self / Same As Patient Allergies buspirone (From BuSpar) Adverse Reaction (Intermediate, Verified 04/22/25 09:24) Heart palpitations sertraline Adverse Reaction (Intermediate, Verified 04/22/25 09:24) GI upset Medication List - Last Reconciled 04/22/25 by Joshua Brown PA-C acetaminophen ER (Tylenol 8 Hour) 650 mg PO Q12H 30 days albuterol sulfate 90 mcg/actuation 2 puffs inhalation Q6-8H PRN amlodipine 5 mg PO DAILY budesonide-formoterol 160-4.5 mcg/actuation (Symbicort) 1 inh inhalation BID 30 days dicyclomine 10 - 20 mg (1 - 2 x 10 mg) PO Q6H PRN fluticasone furoate-vilanterol 100-25 mcg/dose (Breo Ellipta) 1 inh inhalation DAILY 30 days gabapentin 100 mg PO DAILY 90 days lisinopril 20 mg PO DAILY omeprazole 40 mg PO QAM ondansetron HCl 4 mg PO Q8H 7 days Tobacco use date assessed: 04/22/25 Fall risk assessment: No Falls in past year Last assessed Fall Risk: 04/22/25 Dental Screening Dental Screen Date: 04/22/25 Did you have a dental visit in the last 12 months?: No Did you have a dental problem in the last 6 months where you did not have access to dental care?: No HPI PE HPI Details Patient is a 70 y/o F here today for a routine annual physical.?? Patient has a past medical history significant for hypertension, IBS, COPD and former smoker. Concern---> She complains of recent pain in her pelvic area and thighs, which occurs even before exercise. 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 . Polyarthritis: Patient was followed by arthritic treatment center was started on gabapentin 100 mg b.i.d. with decent relief of her arthritic pain. She has lost follow-up with her rheumatology group and would like to have PCP manage her gabapentin medication. . Hypertension:Blood pressure elevated today in office. She reports at home blood pressures are stable. ? She otherwise denies any chest discomfort, headaches, palpitations or vision issues. PLAN: Will increase her lisinopril dose to 30 mg daily .. COPD: Has started on a new maintenance inhaler which has been helping her shortness of breath and cough. She has a 40 pack year smoking history. She is quit smoking nearly 14 years ago. She is still a candidate for low-dose CT chest for lung cancer screening and she is considering. . GERD: Followed by GI ( Dr Apodaca) who prescribes her GI medication, also has IBS to which she uses dicyclomine for IBS. Colonoscopy: Up to date colonoscopy done in 2022 repeat 5 years due colon polyp found- followed by Dr apodaca Mammogram: has upcoming appt for mammogram .. VAccine: UTD COVID vaccine , up-to-date with tetanus, up-to-date with flu and pneumonia vaccines? [facility] Medical History Hand arthritis Vitamin D deficiency Osteopenia Osteoarthritis Obesity HTN, goal to be determined GERD (gastroesophageal reflux disease) COPD (chronic obstructive pulmonary disease) Surgical History H/O: hysterectomy S/P endoscopy Hx of cholecystectomy Hx of section Family History Sister Afib Brain bleed Sister Aortic aneurysm Social History Housing: Apartment Alcohol intake: current Alcohol intake frequency: holidays/special occasions only Patient Tobacco Use Status: Former Tobacco user Tobacco use type: Cigarette e-Cigarette/Vaping Use: Never Used Second Hand Smoke Exposure: No service: No Current occupational status: retired Cognitive needs: No Hearing needs: No Vision needs: Yes Questionnaire PHQ-9 Over the last 2 weeks, how often have you been bothered by any of the following problems? 1. Little interest or pleasure in doing things: not at all 2. Feeling down, depressed, or hopeless: not at all 3. Trouble falling or staying asleep, or sleeping too much: not at all 4. Feeling tired or having little energy: not at all 5. Poor appetite or overeating: not at all 6. Feeling bad about yourself - or that you are a failure or have let yourself or your family down: not at all 7. Trouble concentrating on things, such as reading the newspaper or watching television: not at all 8. Moving or speaking so slowly that other people could have noticed. Or the opposite - being so fidgety or restless that you have been moving around a lot more than usual: not at all 9. Thoughts that you would be better off or of hurting yourself in some way: not at all Total score: 0 Depression Screening Interpretation: Negative Depression Screening Done: Yes 76910 - PHQ-9 Billing: Yes Source: Developed by Drs. Bernabe Nix, Crista Avendaño, Edis Cosetllo and colleagues, with an educational cliff from [employer]. Thrive Questionnaire Date Thrive assessed: 04/22/25 I am a: Patient What is your living situation today?: I have a steady place to live Within the past 12 months, did the food you bought not last and you didn't have the money to get more?: Never true Within the past 12 months, did you worry whether your food would run out before you got money to buy more?: Never true Do you have trouble paying for medicines?: No Do you have trouble getting transportation to medical appointments?: No Do you have trouble paying your heating and electricity bill?: No Do you have trouble taking care of your child, family member or friend?: No Do you have trouble with day-to-day activities such as bathing, preparing meals, shopping, managing finances, etc.?: No Are you currently unemployed and looking for a job?: No Are you interested in more education?: No Please select the resources that you would like help with: None Currently or been in a relationship where the following occur: No concerns reported THRIVE Score: 0 AUDIT C Alcohol Use Questionnaire (AUDIT-C) 1. How often do you have a drink containing alcohol?: Monthly or less 2. How many drinks containing alcohol do you have on a typical day when you are drinking?: 1 or 2 3. How often do you have six or more drinks on one occasion?: Never Total Score: 1 MARIA TERESA-7 AMB Questionnaire MARIA TERESA-7 Date MARIA TERESA - 7 assessed: 04/22/25 Feeling nervous, anxious, or on edge: 0 = Not at all Not being able to stop or control worryin = Not at all Worrying too much about different things: 0 = Not at all Trouble relaxin = Not at all Being so restless that it is hard to sit still: 0 = Not at all Becoming easily annoyed or irritable: 0 = Not at all Feeling afraid as if something awful might happen: 0 = Not at all Total MARIA TERESA-7 score (0-4 normal; 5-9 mild; 10-14 moderate; 15-21 severe): 0 Source: Developed by Drs. Bernabe Nix, Crista Avendaño, Edis Costello and colleagues, with an educational cliff from [employer]. MARIA TERESA-7 Assessment Billing MARIA TERESA-7 Assessment Tool: MARIA TERESA-7 Assessment 01598 Review of Systems Const Denies body aches, Denies chills, Denies excessive sweating, Denies fatigue, Denies fever(s) and Denies headache(s) Eyes Denies blurry vision ENT Denies dysphagia, Denies vertigo, Denies dizziness, Denies headache(s), Denies hearing loss and Denies tinnitus Card Denies chest pain, Denies chest pain with activity, Denies syncope, Denies irregular heart rhythm and Denies dyspnea Resp Denies chest congestion, Denies cough, Denies hemoptysis, Denies dyspnea and Denies wheezing GI Denies abdominal pain, Denies melena, Denies hematochezia, Denies coffee ground emesis, Denies dysphagia, Denies diarrhea, Denies nausea and Denies vomiting Denies urinary frequency, Denies dysuria, Denies urinary hesitancy and Denies urinary urgency Musc Denies arthralgias, Denies limited range of motion, Denies muscle cramps and Denies muscle weakness Skin/Breast Denies rash and Denies skin ulcer Neuro Denies Abnormal speech present, Denies confusion, Denies vertigo, Denies dizziness, Denies syncope, Denies headache(s), Denies memory loss and Denies seizure-like activity Psych Denies anxiety, Denies confusion, Denies depression, Denies memory loss, Denies panic attacks and Denies paranoia Endo Denies excessive sweating, Denies fatigue, Denies flushing, Denies polydipsia and Denies polyuria Aller/Immun Denies wheezing Physical exam (Primary Care) Vital Signs: Last Vital Signs Temp 97.3 F 04/22/25 08:50 Pulse 83 04/22/25 08:50 BP 170/90 H 04/22/25 08:50 Pulse Ox 99 04/22/25 08:50 Oxygen Delivery Method Room Air 04/22/25 08:50 BMI result Body Mass Index 35.2 Tobacco/Smoking Status: Tobacco use Status Tobacco use date assessed 04/22/25 04/22/25 08:52 Patient Tobacco Use Status Former Tobacco user 04/22/25 08:52 Tobacco use type Cigarette 04/22/25 08:52 e-Cigarette/Vaping Use Never Used 04/22/25 08:52 PHQ-9: PHQ-9 Score PHQ-9: Total score 0 04/22/25 09:25 Depression Screening Interpretation: Negative Thrive Assessment: Date of Thrive Assessment Date Thrive assessed 04/22/25 04/22/25 08:52 Currently or been in a relationship where the following occur: No concerns reported Const General: cooperative, comfortable, no acute distress, alert and awake; No confusion Orientation/consciousness: oriented to person, oriented to place, patient oriented x3 and No confusion HENMT Head: Yes normocephalic Ears: external ears normal and TM's normal bilaterally Face and sinus: No sinus tenderness Mouth: Normal oral and palatal mucosa present and tongue normal Teeth and gingiva: dentition normal and gingiva normal Throat: Yes posterior oropharynx normal, Yes tonsils normal and Yes uvula midline Eyes Conjunctivae: conjunctivae normal Sclerae: sclerae normal Pupils: Equal, round and reactive pupils present EOM: EOMs intact bilaterally Direct Ophthalmoscopy: No no photophobia Neck Neck: Yes no lymphadenopathy, No tender and Yes no JVD Thyroid: Thyroid normal Carotids: no bruits Chest Chest palpation & inspection: no tenderness Resp Effort & Inspection: normal respiratory effort, no audible wheezes, not labored and no stridor Auscultation: no crackles, no rales, no rhonchi and no wheezes Cardio Jugular venous distension: no JVD Rate: regular rate, not bradycardic and not tachycardic Rhythm: regular rhythm Bruits: no carotid bruits Peripheral pulses: Peripheral pulses 2+ throughout GI Inspection: Yes normal to inspection, No abdominal wall ecchymosis and No visible herniation Palpation (GI): Soft to palpation, nontender, no guarding, not rigid and No hepatosplenomegaly present Auscultation: normoactive bowel sounds General: Yes no CVA tenderness Back/Spine/Pelvis Back: no CVA tenderness and No back tenderness Cervical Spine: cervical ROM normal Thoracic/Lumbar Spine: thoracic and lumbar spine normal to inspection, straight leg raise negative bilaterally, No thoraco-lumbar ROM limited and No lumbar spinal tenderness Skin Lesions: no lesions Rashes: no rashes Wounds: no wounds Neuro General: oriented to person, oriented to place, patient oriented x3, CN's II-XI intact bilaterally and No confusion Cranial nerves: Yes Equal, round and reactive pupils present and Yes Normal accommodation reflex present Cognition (Neuro): normal cognition Speech: No Abnormal speech present Gait exam (Neuro): Normal gait present Motor exam (neuro): 5/5 motor strength present throughout Extrem Right upper extremity: full ROM; no cyanosis Left upper extremity: full ROM; no cyanosis Right lower extremity: no edema Left lower extremity: no edema Psych Appearance: grossly normal Mental Status: mental status grossly normal Affect: normal affect Attitude: cooperative Thought process: Normal thought process present Coding Level of Care Code Est Pt Prev Care >65y(01247) Diagnoses Annual physical exam Z00.00 HTN, goal to be determined I10 Simple chronic bronchitis J41.0 COPD type: chronic bronchitis Chronic bronchitis type: simple Class 2 obesity E66.9 Primary osteoarthritis of both hips M16.0 Osteoarthritis type: primary Additional Codes MARIA TERESA-7 Assessment Billing - MARIA TERESA-7 Assessment Tool: MARIA TERESA-7 Assessment 97306 ([id number]) PHQ-9 - 64555 - PHQ-9 Billing: Yes ([id number]) Assessment & Plan Assessment & Plan (1) Annual physical exam: Code(s): Z00.00 - Encounter for general adult medical examination without abnormal findings Category: Medical Plan: As per HPI (2) HTN, goal to be determined: Code(s): I10 - Essential (primary) hypertension Category: Medical Plan: Patient's blood pressure elevated today in office. She reports having stable blood pressures at home though blood pressure today significantly elevated pill will increase her lisinopril dose to 30 mg for better blood pressure control . Patient asymptomatic at this time without any chest discomfort, dizziness or headaches. Will continue current dose of lisinopril with goal blood pressure to remain below 130/90 (3) COPD (chronic obstructive pulmonary disease): Code(s): J44.9 - Chronic obstructive pulmonary disease, unspecified Category: Medical Qualifiers: COPD type: chronic bronchitis Chronic bronchitis type: simple Qualified Code(s): J41.0 - Simple chronic bronchitis Plan: Patient was not previous smoker. Patient's COPD is fairly stable with maintenance inhaler, only uses her albuterol inhaler on as needed basis. Denies any recent COPD exacerbations. (4) Class 2 obesity: Code(s): E66.9 - Obesity, unspecified Category: Medical Plan: Patient does understand her BMI is over 35 and will continue working on being more physically active and adapt to better eating habits to reduce her weight (5) Osteoarthritis, hip, bilateral: Code(s): M16.0 - Bilateral primary osteoarthritis of hip Category: Medical Qualifiers: Osteoarthritis type: primary Qualified Code(s): M16.0 - Bilateral primary osteoarthritis of hip Plan: To further evaluate her hip, pelvic, and thigh pain, an order for bilateral hip X-rays will be placed. Additionally, a printed prescription for physical therapy will be provided for the patient to take to a local facility. Orders: Orders Comprehensive Graham. Panel Fast Today I10 - Essential (primary) hypertension XR hips ARIANNA min 3V Today M16.0 - Bilateral primary osteoarthritis of hip PT Evaluation and Treatment Today M16.0 - Bilateral primary osteoarthritis of hip Microalbumin, Random (w Creat) Today I10 - Essential (primary) hypertension Complete Blood Count no Diff Today I10 - Essential (primary) hypertension Medications: New lisinopril 30 mg PO DAILY 90 tabs 1RF 90 days I10 - Essential (primary) hypertension On Hold lisinopril Hold Comment: Doctor's Order 20 mg PO DAILY 90 tabs 1RF I10 - Essential (primary) hypertension Patient Instructions: Goal: Blood pressure to be below 140/90 Barriers: Adherence to physical activity and healthy eating habits
== END 2025-04-22 09:47 | disposition home or self-care (01) ==
LOC: HO.HMCH 08:47
PROVIDERS: PCP Physician Assistant; Visit Provider Physician Assistant
DX: Z00.00 Encounter for general adult medical examination without abnormal findings (principal); J41.0 Simple chronic bronchitis; E66.9 Obesity, unspecified; Z68.35 Body mass index [BMI] 35.0-35.9, adult; I10 Essential (primary) hypertension; M16.0 Bilateral primary osteoarthritis of hip

== ENCOUNTER → 2025-04-22 10:04 | Outpatient (BNV) | payer MEDICARE, SELFPAY | PROVIDERS: PCP Physician Assistant; Visit Provider Radiology Diagnostic Radiology | DX: M16.0 Bilateral primary osteoarthritis of hip (principal) | CPT/HCPCS: 73522 ==

== ENCOUNTER 2025-04-29 09:58 | Outpatient (REF) | payer MEDICARE, SELFPAY ==
--- NOTE | ~2025-04-29 | MM_ITS ---
EXAMINATION: MM SCREENING DIGITAL BREAST TOMOSYNTHESIS, BILATERAL CLINICAL INFORMATION: Screening. Asymptomatic. COMPARISON: Comparison made to multiple prior, most recent April 23, 2024, and most remote November 15, 2018. TECHNIQUE: Digital breast tomosynthesis is performed in mediolateral oblique and craniocaudal views along with computer-aided detection (CAD). Synthesized 2D images are generated from the tomosynthesis. FINDINGS: BREAST COMPOSITION: There are scattered areas of fibroglandular density. BILATERAL BREASTS: No significant masses, suspicious calcifications or other abnormalities are seen in either breast. MM/MM tomosynthesis screening BI IMPRESSION: BILATERAL BREASTS: Negative, no mammographic evidence of malignancy. Normal interval follow-up is recommended in 12 months. ASSESSMENT: BI-RADS: Category 1: Negative RECOMMENDATION: Routine annual mammography screening. FOLLOW-UP: 1 year F/U This examination should not preclude the clinical evaluation of a suspicious palpable abnormality. This patient's information was entered into a reminder system with a target due date for their next mammogram. Electronically signed by: Sarah Suarez MD 04/30/2025 09:38 PM [facility]
== END 2025-04-29 09:59 | disposition home or self-care (01) ==
LOC: HO.MAMMO 09:58
PROVIDERS: PCP Physician Assistant; Visit Provider Physician Assistant
DX: Z12.31 Encounter for screening mammogram for malignant neoplasm of breast (principal)
CPT/HCPCS: 77063; 77067

== ENCOUNTER → 2025-04-29 10:30 | Outpatient (BNV) | payer MEDICARE, SELFPAY | PROVIDERS: PCP Physician Assistant; Visit Provider Radiology Body Imaging | DX: Z12.31 Encounter for screening mammogram for malignant neoplasm of breast (principal) | CPT/HCPCS: 77063; 77067 ==

== ENCOUNTER 2025-05-27 09:58 | Outpatient (REF) | payer MEDICARE, SELFPAY ==
--- NOTE | ~2025-05-27 | XR_ITS ---
EXAMINATION: XR CHEST CLINICAL INFORMATION: J40 - Bronchitis, not specified as acute or chronic COMPARISON: March 09, 2024. TECHNIQUE: PA and lateral views FINDINGS: Pulmonary reticular nodular pattern. No consolidation, pleural effusion or pneumothorax. Cardiomediastinal silhouette size is normal with a round cardiac apex. Calcified plaque thoracic aorta. Multilevel thoracolumbar spondylosis. Osteopenia versus osteoporosis. Degenerative changes in the acromioclavicular joints. XR/XR chest 2V IMPRESSION: Chronic interstitial lung disease. Multilevel spondylosis. Electronically signed by: Marky Skinner MD 05/27/2025 10:15 AM [facility]
== END 2025-05-27 09:59 | disposition home or self-care (01) ==
LOC: HO.XRAY 09:58
PROVIDERS: PCP Physician Assistant; Visit Provider Physician Assistant
DX: J40 Bronchitis, not specified as acute or chronic (principal)
CPT/HCPCS: 71046

== ENCOUNTER → 2025-05-27 10:02 | Outpatient (BNV) | payer MEDICARE, SELFPAY | PROVIDERS: PCP Physician Assistant; Visit Provider Radiology Diagnostic Radiology | DX: J40 Bronchitis, not specified as acute or chronic (principal); J84.9 Interstitial pulmonary disease, unspecified; M47.814 Spondylosis without myelopathy or radiculopathy, thoracic region | CPT/HCPCS: 71046 ==